=== PATIENT | female | born 1975 | race Caucasian/White ===

== ENCOUNTER 2019-11-06 11:10 | Emergency (ER) | payer BC ==
--- OUTSIDE RECORDS SUMMARY | 2019-11-06 11:35 | XMS REPORT ---
:1975 Author Organization eClinicalWorks Care Team Providers Name Role Phone Ines Angel Provider Role Unavailable Allergies No Known Allergies Problems Problem Type Condition Code Onset Dates Condition Status Problem Raynaud''s disease without gangrene I73.00 Active Problem Eyelid abnormality H02.9 Active Problem Hypertension, unspecified type I10 Active Problem Chronic kidney disease, unspecified N18.9 Active CKD stage Problem Insomnia, unspecified type G47.00 Active Problem Hyperlipidemia, unspecified E78.5 Active hyperlipidemia type Problem Kidney problem N28.9 Active Problem Elevated LFTs R94.5 Active Problem Dietary surveillance and counseling Z71.3 Active Problem Dietary counseling and surveillance Z71.3 Active Problem CPAP (continuous positive airway Z99.89 Active pressure) dependence Problem Hyperglycemia R73.9 Active Problem GODFREY (obstructive sleep apnea) G47.33 Active Problem Fatigue, unspecified type R53.83 Active Problem Hypotension, unspecified hypotension I95.9 Active type Problem Chronic pain syndrome G89.4 Active Problem Depression with anxiety F41.8 Active Problem Dizziness R42 Active Problem Cystic disease of liver Q44.6 Active Problem Essential hypertension I10 Active Problem Overweight (BMI 25.0-29.9) E66.3 Active Problem Status post fall Z91.81 Active Problem Vaginal lump N94.9 Active Problem Fibromyalgia M79.7 Active Problem Obesity (BMI 30.0-34.9) E66.9 Active Problem Scleroderma M34.9 Active Problem Polycystic kidney disease Q61.3 Active Problem Other chronic pain G89.29 Active Problem BMI 35.0-35.9,adult Z68.35 Active Problem Dorsalgia, unspecified M54.9 Active Problem Recurrent falls R29.6 Active Medications No Known Medications Results No Known Results Summary Purpose eClinicalWorks Submission
--- OUTSIDE RECORDS SUMMARY | 2019-11-06 11:35 | XMS REPORT ---
:1975 Author Organization [facility] Address [address] [place] [address] Dr. Enamorado [address] [place] [id number] Care Team Providers Name Role Phone DIANA BAUER Unavailable Unavailable Problems This patient has no known problems. Allergies, Adverse Reactions, Alerts This patient has no known allergies or adverse reactions. Medications This patient has no known medications. Results Test Description Test Time Test Comments Text Results Atomic Results Result Comments AFB CULTURE + SMEAR 2018-12-28 12:38:00 Test Item Value Reference Range Comments CULTURE (BEAKER) (test qlhz=3235) No acid-fast bacilli isolated in 42 days AFB SMEAR (BEAKER) (test copf=008) No acid fast bacilli seen AFB CULTURE + [id number] 12:38:00 Test Item Value Reference Range Comments CULTURE (BEAKER) (test No acid-fast bacilli isolated auaq=9249) in 42 days AFB SMEAR (BEAKER) (test No acid fast bacilli seen wrsi=971) FUNGUS CULTURE + [id number] 15:25:00 Test Item Value Reference Range Comments CULTURE (BEAKER) (test No fungus isolated in 28 days tvmg=7925) FUNGUS SMEAR (BEAKER) (test No fungi seen wcoa=1672) FUNGUS CULTURE + [id number] 15:25:00 Test Item Value Reference Range Comments CULTURE (BEAKER) (test No fungus isolated in 28 days soah=0497) FUNGUS SMEAR (BEAKER) (test No fungi seen ebsr=2223) SURGICALLY OBTAINED CULTURE + GRAM [id number] 08:22:00 Test Item Value Reference Range Comments CULTURE (BEAKER) (test COAGULASE NEGATIVE From Broth Only nzbf=6256) STAPHYLOCOCCUS Coagulase negative Staphylococcus Clindamycin (test code=10) Erythromycin (test code=4) Linezolid (test code=40) Nitrofurantoin (test code=23) Oxacillin (test code=14) Rifampin (test code=43) Tetracycline (test code=2) Trimethoprim + Sulfamethoxazole (test code=47) Vancomycin (test code=13) CULTURE (BEAKER) (test COAGULASE NEGATIVE From Broth Only cppa=1483) STAPHYLOCOCCUS Coagulase negative Staphylococcusof a second type Clindamycin (test code=10) Erythromycin (test code=4) Nitrofurantoin (test code=23) Oxacillin (test code=14) Rifampin (test code=43) Tetracycline (test code=2) Trimethoprim + Sulfamethoxazole (test code=47) Vancomycin (test code=13) GRAM STAIN RESULT <1+ White blood cells (BEAKER) (test seen mdhh=1887) GRAM STAIN RESULT <1+ gram variable (BEAKER) (test coccobacilli osbk=751187) TISSUE [id number] 20:10:00Surgical Pathology Report Case: [id number] Authorizing Provider: Diana Bauer MD Collected: 11/10/2018 0859 Ordering Location: [facility] Received: 11/10/2018 0953 PERIOPERATIVE SERVICES Pathologist: Raymond Gagnon MD Specimens: A) - Lung, Left Upper Lobe, LEFT UPPER LOBE WEDGE B) -Lung, Left Lower Lobe, LUNG LEFT LOWER LOBE WEDGE A. LUNG, LEFT UPPER LOBE, WEDGE RESECTION: - LUNG PARENCHYMA WITH MILD EMPHYSEMATOUS CHANGE ( SEE MICROSCOPIC DESCRIPTIONAND COMMENT)B. LUNG, LEFT LOWER LOBE, WEDGE RESECTION: - LUNG PARENCHYMA WITH MILD EMPHYSEMATOUS CHANGE (SEE MICROSCOPIC DESCRIPTION AND COMMENT) Signing Pathologist Direct Phone Line: The lung parenchyma shows mild emphysematous change and no other significant diagnostic abnormality. There is no evidence of interstitial lung disease (or) changes suggestive of autoimmune lung disease. Clinical and radiologic correlation is recommended to determine if the targeted areas are appropriately sampled.[id number] of breathA. Left upper lobe lung wedge; B. Left lower lobe lung wedgeSpecimen A: Received fresh labeled "lung, left upper lobe" is a 3.0 x 2.0 x 0.6 cm surgically stapled wedge of pulmonaryparenchyma. The pleural surface is purple-geurra to paulson-white and smooth. The specimen is serially sectioned to reveal pink-guerra spongy homogeneous pulmonary parenchyma throughout. No discrete masses are identified. The specimen is entirely submitted in cassettes A1-A2. Specimen B: In saline labeled "lung, left lower lobe" is a 2.2 x 1.5 x 0.2 cm surgically stapled wedge of pulmonary parenchyma. The pleural surface is purple-guerra and smooth. The specimen is serially sectioned to reveal pink-guerra spongy homogeneous pulmonary parenchyma throughout. No discrete masses are identified. The specimen is entirely submitted in cassette B1. DB/plThe alveolated lung parenchyma shows mild irregular enlargement of the air spaces, suggestive of mild emphysema. The airways are devoid of significant inflammation (or)peribronchiolar thickening. The vascular/ lymphatic channels do not show any significant abnormality. Pleura is unremarkable.There is no evidence of honeycombing (or) interstitial fibrosis. No cellularinfiltrates, features of acute lung injury, amyloid, vasculitis, granulomas, organizing pneumonia, neoplasm are evident.ANAEROBIC [id number] 18:07:00 Test Item Value Reference Range Comments CULTURE (BEAKER) (test kpmc=9931) No anaerobes isolated ANAEROBIC [id number] 18:07:00 Test Item Value Reference Range Comments CULTURE (BEAKER) (test ulbw=9776) No anaerobes isolated SURGICALLY OBTAINED CULTURE + GRAM [id number] 11:55:00 Test Item Value Reference Range Comments CULTURE (BEAKER) (test vpva=9302) No growth GRAM STAIN RESULT (BEAKER) (test No White blood cells seen ydqe=3220) GRAM STAIN RESULT (BEAKER) (test No organisms seen ykig=25979) RAD, CHEST, 1 VIEW, NON [id number] 11:44:00Reason for exam:->s/p chest tube removalShould this be performed at the bedside?->YesFINAL REPORT RAD, CHEST, 1 VIEW, NON DEPT INDICATION: s/p chest tube removal COMPARISON: Seven hours prior FINDINGS: Portable frontal view of the chest. IMPRESSION: Support Lines: Left thoracostomy tube has been removed. Lungs and pleura: There is a tiny left apical pneumothorax. Lungs are otherwise clear.Heart and mediastinum: Stable, unremarkable mediastinal contours.Additional findings: None. Signed: JR Garcia Robert MDReport Verified Date/Time: 11/11/2018 11:44:17 Reading Location: [facility] Radiology Reading Room Electronically signed by: TALIA GARCIA on 11:44 AMCBC W/PLT COUNT & AUTO [id number] 05:43:00 Test Item Value Reference Range Comments WHITE BLOOD CELL COUNT (BEAKER) (test yjpn=043) 5.5 K/ L 3.5-10.5 RED BLOOD CELL COUNT (BEAKER) (test pite=589) 3.44 M/ L 3.93-5.22 HEMOGLOBIN (BEAKER) (test kaft=039) 10.6 GM/DL 11.2-15.7 HEMATOCRIT (BEAKER) (test aybn=399) 33.7 % 34.1-44.9 MEAN CORPUSCULAR VOLUME (BEAKER) (test kqca=081) 98.0 fL 79.4-94.8 MEAN CORPUSCULAR HEMOGLOBIN (BEAKER) (test 30.8 pg 25.6-32.2 zqlj=476) MEAN CORPUSCULAR HEMOGLOBIN CONC (BEAKER) (test 31.5 GM/DL 32.2-35.5 rapn=425) RED CELL DISTRIBUTION WIDTH (BEAKER) (test 12.9 % 11.7-14.4 oedc=876) PLATELET COUNT (BEAKER) (test lqea=787) 186 K/CU MM 150-450 MEAN PLATELET VOLUME (BEAKER) (test skdu=540) 10.7 fL 9.4-12.3 NUCLEATED RED BLOOD CELLS (BEAKER) (test 0 /100 WBC 0-0 ekwg=998) NEUTROPHILS RELATIVE PERCENT (BEAKER) (test 88 % cgts=115) LYMPHOCYTES RELATIVE PERCENT (BEAKER) (test 6 % agjy=679) MONOCYTES RELATIVE PERCENT (BEAKER) (test 5 % ximj=495) EOSINOPHILS RELATIVE PERCENT (BEAKER) (test 0 % yxmh=835) BASOPHILS RELATIVE PERCENT (BEAKER) (test 0 % quie=415) NEUTROPHILS ABSOLUTE COUNT (BEAKER) (test 4.82 K/ L 1.56-6.13 rqzg=370) LYMPHOCYTES ABSOLUTE COUNT (BEAKER) (test 0.35 K/ L 1.18-3.74 mlli=105) MONOCYTES ABSOLUTE COUNT (BEAKER) (test 0.29 K/ L 0.24-0.36 vvkt=901) EOSINOPHILS ABSOLUTE COUNT (BEAKER) (test 0.00 K/ L 0.04-0.36 jdwr=205) BASOPHILS ABSOLUTE COUNT (BEAKER) (test 0.01 K/ L 0.01-0.08 dlyp=143) IMMATURE GRANULOCYTES-RELATIVE PERCENT (BEAKER) 0 % 0-1 (test rqel=9210) [id number] 05:26:00 Test Item Value Reference Range Comments MAGNESIUM (BEAKER) (test xtgl=309) 2.6 mg/dL 1.6-2.6 BASIC METABOLIC [id number] 05:26:00 Test Item Value Reference Range Comments SODIUM (BEAKER) (test 140 meq/L 136-145 ezkq=585) POTASSIUM (BEAKER) (test 4.8 meq/L 3.5-5.1 mjns=178) CHLORIDE (BEAKER) (test 109 meq/L 98-107 ymvb=751) CO2 (BEAKER) (test 22 meq/L 22-29 rnoi=241) BLOOD UREA NITROGEN 19 mg/dL 7-21 (BEAKER) (test orxb=182) CREATININE (BEAKER) (test 1.49 mg/dL 0.57-1.25 ygyo=148) GLUCOSE RANDOM (BEAKER) 105 mg/dL 70-105 (test goum=692) CALCIUM (BEAKER) (test 9.9 mg/dL 8.4-10.2 vmss=946) EGFR (BEAKER) (test 38 mL/min/1.73 sq m ESTIMATED GFR IS NOT pdsm=0263) ACCURATE CREATININE CLEARANCE IN PREDICTING GLOMERULAR FILTRATION RATE. ESTIMATED GFR IS NOT APPLICABLE FOR DIALYSIS PATIENTS. RAD, CHEST, 1 VIEW, NON [id number] 04:31:00Reason for exam:->S/P left lung biopsy; please evaluate for pneumothoraxIs the patient ?-> NoShould this be performed at the bedside?->YesFINAL REPORT Comparison exam: 11/10/2018 Interval development of mild right lower lobe atelectasis. Normal cardiomediastinal contours. Left chest tube, stable in position. Signed: Noah Reneeeport Verified Date/Time: 11/11 04:31:41 Reading Location: [address] Reading Room 04: [id number] 10:18:00 Test Item Value Reference Range Comments PHOSPHORUS (BEAKER) (test fovm=349) 3.4 mg/dL 2.3-4.7 [id number] 10:18:00 Test Item Value Reference Range Comments MAGNESIUM (BEAKER) (test rwqj=993) 1.9 mg/dL 1.6-2.6 BASIC METABOLIC [id number] 10:18:00 Test Item Value Reference Range Comments SODIUM (BEAKER) (test 143 meq/L 136-145 nitr=289) POTASSIUM (BEAKER) (test 4.3 meq/L 3.5-5.1 ilyk=553) CHLORIDE (BEAKER) (test 112 meq/L 98-107 cmnm=429) CO2 (BEAKER) (test 26 meq/L 22-29 aara=249) BLOOD UREA NITROGEN 20 mg/dL 7-21 (BEAKER) (test tfjh=565) CREATININE (BEAKER) (test 1.63 mg/dL 0.57-1.25 hjpx=095) GLUCOSE RANDOM (BEAKER) 121 mg/dL 70-105 (test fgne=486) CALCIUM (BEAKER) (test 9.0 mg/dL 8.4-10.2 wudw=731) EGFR (BEAKER) (test 34 mL/min/1.73 sq m ESTIMATED GFR IS NOT jreo=7042) ACCURATE CREATININE CLEARANCE IN PREDICTING GLOMERULAR FILTRATION RATE. ESTIMATED GFR IS NOT APPLICABLE FOR DIALYSIS PATIENTS. RAD, CHEST, 1 VIEW, NON [id number] 10:16:00Reason for exam:->S/P left lung biopsy; evaluate for pneumothoraxIs the patient ?->NoShould this be performed at the bedside?->YesFINAL REPORT RAD , CHEST, 1 VIEW, NON DEPT INDICATION: S/P left lung biopsy; evaluate for pneumothorax COMPARISON: November 07, 2018 FINDINGS: Portable frontal view of the chest. IMPRESSION: Support Lines: Left thoracostomy tube terminates near the apex. Lungs and pleura: Clear lungs. No visible pneumothorax on either side.Heart and mediastinum: Stable, unremarkable contours.Additional findings: None. Signed: JR Garcia Robert MDReport Verified Date/Time: 11/10/2018 10:16:26 Reading Location: [facility] Radiology Reading Room CBC ( HEMOGRAM ONLY)2018-11-10 09:58:00 Test Item Value Reference Range Comments WHITE BLOOD CELL COUNT (BEAKER) (test rqiv=152) 3.0 K/ L 3.5-10.5 RED BLOOD CELL COUNT (BEAKER) (test berw=523) 3.13 M/ L 3.93-5.22 HEMOGLOBIN (BEAKER) (test yfyf=267) 9.5 GM/DL 11.2-15.7 HEMATOCRIT (BEAKER) (test llvg=760) 30.0 % 34.1-44.9 MEAN CORPUSCULAR VOLUME (BEAKER) (test fnqj=447) 95.8 fL 79.4-94.8 MEAN CORPUSCULAR HEMOGLOBIN (BEAKER) (test 30.4 pg 25.6-32.2 zkqn=907) MEAN CORPUSCULAR HEMOGLOBIN CONC (BEAKER) (test 31.7 GM/DL 32.2-35.5 yeoh=564) RED CELL DISTRIBUTION WIDTH (BEAKER) (test 13.3 % 11.7-14.4 wkrn=130) PLATELET COUNT (BEAKER) (test hsgu=347) 159 K/CU MM 150-450 MEAN PLATELET VOLUME (BEAKER) (test hldv=175) 10.3 fL 9.4-12.3 NUCLEATED RED BLOOD CELLS (BEAKER) (test 0 /100 WBC 0-0 dwaa=226) RAD, CHEST, 2 [id number] 16:23:00Reason for exam:->Shortness of breathFINAL REPORT PA and Lateral views of the chest dated 11/07/2018 Clinical information: Shortness of breath Comment: Heart is normal in size. Pulmonary vasculature is unremarkable. Lungs are clear. No pulmonary infiltrate or pleural effusion is present. Impression: No active cardiopulmonary disease. Signed: Grisel Ferraro Verified Date/Time: 11/07 16:23:26 ReadingLocation: [facility] Radiology Reading Room PREGNANCY SCREEN, [id number] 16:20:00 Test Item Value Reference Range Comments TEST URINE (BEAKER) (test bcuf=289) Negative COMPREHENSIVE METABOLIC [id number] 16:11:00 Test Item Value Reference Range Comments TOTAL PROTEIN (BEAKER) 7.1 gm/dL 6.0-8.3 (test hmfl=732) ALBUMIN (BEAKER) (test 4.1 g/dL 3.5-5.0 razb=0193) ALKALINE PHOSPHATASE 79 U/L 40-150 (BEAKER) (test vsog=032) BILIRUBIN TOTAL (BEAKER) 0.3 mg/dL 0.2-1.2 (test epty=988) SODIUM (BEAKER) (test 145 meq/L 136-145 iggk=693) POTASSIUM (BEAKER) (test 4.6 meq/L 3.5-5.1 negk=633) CHLORIDE (BEAKER) (test 110 meq/L 98-107 uijj=715) CO2 (BEAKER) (test 27 meq/L 22-29 ogim=569) BLOOD UREA NITROGEN 21 mg/dL 7-21 (BEAKER) (test anlb=390) CREATININE (BEAKER) (test 1.63 mg/dL 0.57-1.25 rjkw=892) GLUCOSE RANDOM (BEAKER) 101 mg/dL 70-105 (test dyti=649) CALCIUM (BEAKER) (test 10.1 mg/dL 8.4-10.2 cgou=786) AST (SGOT) (BEAKER) (test 24 U/L 5-34 slfm=846) ALT (SGPT) (BEAKER) (test 17 U/L 6-55 nywf=370) EGFR (BEAKER) (test 34 mL/min/1.73 sq m ESTIMATED GFR IS NOT aagw=0350) ACCURATE CREATININE CLEARANCE IN PREDICTING GLOMERULAR FILTRATION RATE. ESTIMATED GFR IS NOT APPLICABLE FOR DIALYSIS PATIENTS. [id number] 16:06:00 Test Item Value Reference Range Comments PROTIME (BEAKER) (test ydht=660) 13.5 seconds 11.7-14.7 INR (BEAKER) (test pzyv=397) 1.0 <=5.9 PARTIAL THROMBOPLASTIN TIME (BEAKER) (test 30.3 seconds 22.5-36.0 iqdg=959) RECOMMENDED COUMADIN/WARFARIN INR THERAPY RANGESSTANDARD DOSE: 2.0 - 3.0 Includes: PROPHYLAXIS forvenous thrombosis, systemic embolization; TREATMENT for venous thrombosis and/or pulmonary embolus.HIGH RISK: Target INR is 2.5-3.5 for patients with mechanical heart valves.CBC W/PLT COUNT & AUTO [id number] 15:55:00 Test Item Value Reference Range Comments WHITE BLOOD CELL COUNT (BEAKER) (test qvxn=164) 3.5 K/ L 3.5-10.5 RED BLOOD CELL COUNT (BEAKER) (test xfhy=770) 3.40 M/ L 3.93-5.22 HEMOGLOBIN (BEAKER) (test gwid=767) 10.6 GM/DL 11.2-15.7 HEMATOCRIT (BEAKER) (test wwbb=160) 32.6 % 34.1-44.9 MEAN CORPUSCULAR VOLUME (BEAKER) (test sroy=302) 95.9 fL 79.4-94.8 MEAN CORPUSCULAR HEMOGLOBIN (BEAKER) (test 31.2 pg 25.6-32.2 nuke=976) MEAN CORPUSCULAR HEMOGLOBIN CONC (BEAKER) (test 32.5 GM/DL 32.2-35.5 gark=803) RED CELL DISTRIBUTION WIDTH (BEAKER) (test 13.2 % 11.7-14.4 nwir=830) PLATELET COUNT (BEAKER) (test ldtw=601) 189 K/CU MM 150-450 MEAN PLATELET VOLUME (BEAKER) (test skyt=106) 10.8 fL 9.4-12.3 NUCLEATED RED BLOOD CELLS (BEAKER) (test 0 /100 WBC 0-0 euku=242) NEUTROPHILS RELATIVE PERCENT (BEAKER) (test 50 % tzxo=673) LYMPHOCYTES RELATIVE PERCENT (BEAKER) (test 36 % hgsn=790) MONOCYTES RELATIVE PERCENT (BEAKER) (test 9 % nvgd=548) EOSINOPHILS RELATIVE PERCENT (BEAKER) (test 3 % adxm=191) BASOPHILS RELATIVE PERCENT (BEAKER) (test 1 % fthn=615) NEUTROPHILS ABSOLUTE COUNT (BEAKER) (test 1.77 K/ L 1.56-6.13 toyf=058) LYMPHOCYTES ABSOLUTE COUNT (BEAKER) (test 1.27 K/ L 1.18-3.74 ebfy=280) MONOCYTES ABSOLUTE COUNT (BEAKER) (test 0.33 K/ L 0.24-0.36 dzty=199) EOSINOPHILS ABSOLUTE COUNT (BEAKER) (test 0.12 K/ L 0.04-0.36 vknd=178) BASOPHILS ABSOLUTE COUNT (BEAKER) (test 0.03 K/ L 0.01-0.08 csog=035) IMMATURE GRANULOCYTES-RELATIVE PERCENT (BEAKER) 0 % 0-1 (test srcn=1953)
--- OUTSIDE RECORDS SUMMARY | 2019-11-06 11:36 | XMS REPORT ---
:1975 Author Organization eClinicalWorks Care Team Providers Name Role Phone Ines Angel Provider Role Unavailable Allergies, Adverse Reactions, Alerts Substance Reaction Event Type penicillin Info Not Available Drug Allergy NIFEdipine causes leg swelling Drug Allergy Problems Problem Type Condition Code Onset Dates Condition Status Assessment Hypotension, unspecified hypotension I95.9 Active type Assessment Essential hypertension I10 Active Problem Raynaud''s disease without gangrene I73.00 Active [...] Z91.81 Active Problem Vaginal lump N94.9 Active Assessment Overweight (BMI 25.0-29.9) E66.3 Active Problem Fibromyalgia M79.7 Active Assessment Need for influenza vaccination Z23 Active Problem Obesity (BMI 30.0-34.9) E66.9 Active Assessment Insomnia, unspecified type G47.00 Active Problem Scleroderma M34.9 Active Assessment Dietary surveillance and counseling Z71.3 Active Problem Polycystic kidney disease Q61.3 Active Problem Other chronic pain G89.29 Active Problem BMI 35.0-35.9,adult Z68.35 Active Problem Dorsalgia, unspecified M54.9 Active Problem Recurrent falls R29.6 Active Medications Medication Code Code Instructions Start End Status Dosage System Date Date Losartan [facility] 80892988879 50 MG Orally 1 Dec 18, Active as Potassium tablet once a 2018 directed day and take a 2nd dose in 12h prn BP > mw=854/90 Trazodone HCl [facility] 51562529226 50 MG Orally Active 2 tablets Once a day at bedtime as needed for sleep Xanax [facility] 60698101382 1 MG Orally Active 1 tablet Once a day Saxenda [facility] 73852614146 18 MG/3ML Dec 18May Active as Subcutaneous 2018, directed Start at 0.6 mg 2020 once daily x 1 week, then increase dose by 0.6 mg/day qwk to max of 3 mg/day Cardura [facility] 80177755870 4 MG Orally April 04, Active 1/2 tablet Twice daily 2017 PredniSONE [facility] 13286038957 5 MG Orally Active 1 tablet Once a day HydrALAZINE HCl [facility] 33125332226 50 MG Orally Active 1 tablet Three times a with food day [place] [facility] 84969443711 32G X 5 MM Active as directed Coreg [facility] 58484293646 25 MG Orally Active 1 tablet Twice a day as needed for BP > mv=439/90 Carvedilol ND 87373244118 25 mg Orally June 03, Active 1 tablet Twice a day 2017 with food Pravastatin [facility] 04514476983 10 MG Orally Active 1 tablet Sodium Once a day in evening Valsartan [facility] 24384458180 80 MG Orally Active 1 tablet Twice a day Latuda [facility] 92438556285 20 MG Orally Active 2 tablets Once a day with food Promethazine [facility] 09560702777 12.5 MG Orally Active 1 tablet HCl every 6 hrs as needed BELVIQ [facility] 83159181470 10 MG orally Active 1 tablet Twice a day Tolvaptan [facility] [address]-31 15 MG Orally Active 2 tablets Once a day Doxazosin [facility] 56028235099 4 MG Orally Sep 30, Active 1/2 tablet Mesylate twice a day 2017 Cymbalta [facility] 94637892782 60 MG Orally Active 1 capsule Once a day Crestor [facility] 07499269989 5 MG Orally Active 1 tablet Once a day Ultram [facility] 27524863036 50 MG Orally Active 1 tablet every 6 hrs as needed Results No Known Results Immunizations Vaccine Administration Date Flucelvax - single dose syringe Sep 27, 2019 Summary Purpose eClinicalWorks Submission
[2019-11-06] MEDS ORDERED: NA CHLORIDE 0.9% 1,000 ML ONE (11:52)
[2019-11-06 12:05] LABS: Basophils % 0.6 % (0-1.3); Hematocrit 35.5 % (36.0-45.0); Lymphocytes % 14.6 % (15.3-44.8); MPV 8.9 fL (7.6-11.3); RBC Red Blood Cell Count 3.94 M/uL (3.86-4.86)
[2019-11-06 12:30] LABS: ALT/SGPT 21 U/L (12-78); AST/SGOT 12 U/L (15-37); Albumin 3.5 g/dL (3.4-5.0); Alkaline Phosphatase 107 U/L (45-117); BUN Blood Urea Nitrogen 25 mg/dL (7-18); Bicarbonate 25 mmol/L (21-32); Bilirubin Total 0.5 mg/dL (0.2-1.0); Glucose Level 85 mg/dL (74-106); Potassium 3.6 mmol/L (3.5-5.1); Protein, Total 7.1 g/dL (6.4-8.2); Sodium Level 142 mmol/L (136-145); Troponin (Emerg Dept Use Only) < 0.02 ng/mL (0.0-0.045)
--- NOTE | 2019-11-06 13:00 | EKG ---
Test Date: 2019-11-06 Test Time: 11:50:11 Supervisor Rose Grading: RM MEASUREMENT RESULTS: Intervals: Rate: 58 NC: 152 QRSD: 86 QT: 454 QTc: 445 Warren: P: 50 NC: 152 QRS: -5 T: 10 INTERPRETIVE STATEMENTS: Sinus bradycardia Minimal voltage criteria for LVH, may be normal variant Cannot rule out Anterior infarct, age undetermined Abnormal ECG Compared to ECG 10/29/2015 22:38:08 Left ventricular hypertrophy now present Myocardial infarct finding now present Sinus rhythm no longer present Electronically Signed On 11-06-19 12:59:16 CYLINDER HANDLER by Rasmey Plummer
--- NOTE | 2019-11-06 13:33 | EDPHYS ---
Physician Documentation [facility] Name: Alethea Clayton Age: 44 yrs Sex: Female : 1975 Arrival Date: 11/06/2019 Time: 11:12 Bed 5 Private MD: ED Physician Freddy Neely HPI: 11/06 11:37 This 44 yrs old Female presents to ER via EMS with complaints of Syncope. marisela 11:37 The patient has experienced near-syncope, almost passed out, felt dizzy, felt faint. marisela Onset: The symptoms/episode began/occurred just prior to arrival. Duration: This was a single episode, that lasted 45 second(s). Context: the episode(s) was witnessed, by family, dentist office. Associated injury: The patient did not suffer any apparent associated injury. Associated signs and symptoms: The patient has no apparent associated signs or symptoms. Current symptoms: Currently, the patient is not experiencing any symptoms, the patient feels back to baseline, no decreased level of consciousness, no confusion, no dysphasia, no headache, no paralysis, no visual changes. The patient has not experienced similar symptoms in the past. Historical: - Allergies: 11:20 nefedipine; hb 11:20 PENICILLINS; hb - Home Meds: 11:20 carvedilol 25 mg Oral tab 1 tab 2 times per day [Active]; doxazosin 2 mg Oral tab 2 hb tabs once daily [Active]; folic acid 1 mg Oral tab 1 tab once daily [Active]; lamotrigine 100 mg Oral tab 1 tab once daily [Active]; methotrexate sodium 20 mg Oral tab once wkly [Active]; Orencia 125 mg/mL subcutaneous syrg 1 mL once wkly [Active]; trazodone 50 mg Oral tab 2 tabs nightly [Active]; Latuda 20 mg oral tab 1 tab once daily [Active]; Plaquenil 200 mg Oral tab 1 tab 2 times per day [Active]; losartan 50 mg oral tab 1 tab once daily [Active]; Saxenda 3 mg/0.5 mL (18 mg/3 mL) subcutaneous pnij 0.5 mL once daily [Active]; Pravachol 20 mg Oral tab [Active]; - PMHx: 11:20 Depression; Hyperlipidemia; poly cystic kindey; Hypertension; undifferentiated auto hb immunde disease-connective tissue; - PSHx: 11:20 ; Hysterectomy; hb - Immunization history:: Adult Immunizations up to date. - Social history:: Smoking status: Patient/guardian denies using tobacco. - Ebola Screening: : No symptoms or risks identified at this time. - Family history:: not pertinent. ROS: 11:37 Constitutional: Negative for fever, chills, and weight loss, Eyes: Negative for injury, marisela pain, redness, and discharge, ENT: Negative for injury, pain, and discharge, Neck: Negative for injury, pain, and swelling, Cardiovascular: Negative for chest pain, palpitations, and edema, Respiratory: Negative for shortness of breath, cough, wheezing, and pleuritic chest pain, Abdomen/GI: Negative for abdominal pain, nausea, vomiting, diarrhea, and constipation, Back: Negative for injury and pain, : Negative for injury, bleeding, discharge, and swelling, MS/Extremity: Negative for injury and deformity, Skin: Negative for injury, rash, and discoloration, Neuro: Negative for headache, weakness, numbness, tingling, and seizure, Psych: Negative for depression, anxiety, suicide ideation, homicidal ideation, and hallucinations, Allergy/Immunology: Negative for hives, rash, and allergies, Endocrine: Negative for neck swelling, polydipsia, polyuria, polyphagia, and marked weight changes, Hematologic/Lymphatic: Negative for swollen nodes, abnormal bleeding, and unusual bruising. 11:37 Neuro: Positive for near syncope. marisela Exam: 11:37 Constitutional: This is a well developed, well nourished patient who is awake, alert, marisela and in no acute distress. Head/Face: Normocephalic, atraumatic. Eyes: Pupils equal round and reactive to light, extra-ocular motions intact. Lids and lashes normal. Conjunctiva and sclera are non-icteric and not injected. Cornea within normal limits. Periorbital areas with no swelling, redness, or edema. ENT: Nares patent. No nasal discharge, no septal abnormalities noted. Tympanic membranes are normal and external auditory canals are clear. Oropharynx with no redness, swelling, or masses, exudates, or evidence of obstruction, uvula midline. Mucous membranes moist. Neck: Trachea midline, no thyromegaly or masses palpated, and no cervical lymphadenopathy. Supple, full range of motion without nuchal rigidity, or vertebral point tenderness. No Meningismus. Chest/axilla: Normal chest wall appearance and motion. Nontender with no deformity. No lesions are appreciated. Cardiovascular: Regular rate and rhythm with a normal S1 and S2. No gallops, murmurs, or rubs. Normal PMI, no JVD. No pulse deficits. Respiratory: Lungs have equal breath sounds bilaterally, clear to auscultation and percussion. No rales, rhonchi or wheezes noted. No increased work of breathing, no retractions or nasal flaring. Abdomen/GI: Soft, non-tender, with normal bowel sounds. No distension or tympany. No guarding or rebound. No evidence of tenderness throughout. Back: No spinal tenderness. No costovertebral tenderness. Full range of motion. Skin: Warm, dry with normal turgor. Normal color with no rashes, no lesions, and no evidence of cellulitis. MS/ Extremity: Pulses equal, no cyanosis. Neurovascular intact. Full, normal range of motion. Neuro: Awake and alert, GCS 15, oriented to person, place, time, and situation. Cranial nerves II-XII grossly intact. Motor strength 5/5 in all extremities. Sensory grossly intact. Cerebellar exam normal. Normal gait. Psych: Awake, alert, with orientation to person, place and time. Behavior, mood, and affect are within normal limits. 11:39 Musculoskeletal/extremity: DVT Exam: No signs of deep vein thrombosis. no pain, no marisela swelling, no tenderness, negative Homans' sign noted on exam, no appreciated bluish discoloration, no erythema, no increased warmth. Vital Signs: 11:24 BP 143 / 108; Pulse 61; Resp 16; Temp 97.7; Pulse Ox 100% on R/A; Pain 0/10; hb 12:30 BP 128 / 71; Pulse 66; Resp 15; Pulse Ox 99% on R/A; hb 13:30 BP 126 / 76; Pulse 64; Resp 16; Pulse Ox 99% on R/A; Pain 0/10; hb MDM: 11:15 Patient medically screened. [facility] 11:39 Data reviewed: vital signs, nurses notes, lab test result(s), EKG, radiologic studies. [facility] 11/06 11:37 Order name: CBC with Diff; Complete Time: 13:28 [facility] 11/06 11:37 Order name: Comprehensive Metabolic Panel; Complete Time: 13:28 [facility] 11/06 11:37 Order name: Urine Culture [facility] 11/06 11:39 Order name: Troponin (emerg Dept Use Only); Complete Time: 13:28 [facility] 11/06 11:53 Order name: Urine Dipstick--Ancillary (enter results) 11/06 11:37 Order name: EKG; Complete Time: 11:38 [facility] 11/06 11:37 Order name: EKG - Nurse/Tech; Complete Time: 11:49 [facility] 11/06 11:37 Order name: Urine Dipstick-Ancillary (obtain specimen); Complete Time: 11:48 [facility] Administered Medications: 11:50 Drug: NS 0.9% 1000 ml Route: IV; Rate: 1 bolus; Site: left antecubital; hb 12:45 Follow up: Response: No adverse reaction; IV Status: Completed infusion; IV Intake: jl7 1000ml Disposition: 11/06/19 13:32 Discharged to Home. Impression: Syncope and collapse - near, Unspecified kidney failure - renal insufficency. - Condition is Fair. - Discharge Instructions: Near-Syncope, Weakness, Near-Syncope, [id number], Acute Kidney Injury, Adult, Weakness, Jbon-je-Wwve, Chronic Kidney Disease, Adult, Kwlu-ii-Uidd, Chronic Kidney Disease, Adult, Preventing Chronic Kidney Disease, Vasovagal Syncope, Adult. - Medication Reconciliation Form, Thank You Letter, Antibiotic Education, Prescription Opioid Use form. - Follow up: Private Physician; When: 2 - 3 days; Reason: Recheck today's complaints, Continuance of care, Re-evaluation by your physician. - Problem is new. - Symptoms have improved. 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 [employer] EDRI Freddy Neely MD MD cha Baxter, Heather RN RN Alyssia Guillory RN jl7 Corrections: (The following items were deleted from the chart) 13:56 13:32 11/06/2019 13:32 Discharged to Home. Impression: Syncope and collapse - near; hb Unspecified kidney failure - renal insufficency. Condition is Fair. Discharge Instructions: Near-Syncope, Weakness, Near-Syncope, Eixg-[id number], Weakness, [id number], Vasovagal Syncope, Adult. Forms are Medication Reconciliation Form, Thank You Letter, Antibiotic Education, Prescription Opioid Use. Follow up: Private Physician; When: 2 - 3 days; Reason: Recheck today's complaints, Continuance of care, Re-evaluation by your physician. Problem is new. Symptoms have improved. marisela
--- NOTE | 2019-11-06 13:33 | ER ---
Nurse's Notes [facility] Name: Alethea Clayton Age: 44 yrs Sex: Female : 1975 Arrival Date: 11/06/2019 Time: 11:12 Bed 5 Private MD: Diagnosis: Syncope and collapse-near;Unspecified kidney failure-renal insufficency Presentation: 11/06 11:13 Presenting complaint: EMS states: Syncopal episode while standing for post wisdom tooth hb extraction XRays. Pt received 2 cartridges of Septocaine 1:100,100 during procedure, no sedation .BP 136/86, HR 80s, NSR on 12 lead, BGL 88, 20 G LAC. Transition of care: patient was received from another setting of care (ambulatory specialty care practice), Juan Noyola DDS. Onset of symptoms was November 06, 2019. Risk Assessment: Do you want to hurt yourself or someone else? Patient reports no desire to harm self or others. Initial Sepsis Screen: Does the patient meet any 2 criteria? No. Patient's initial sepsis screen is negative. Does the patient have a suspected source of infection? No. Patient's initial sepsis screen is negative. Care prior to arrival: None. 11:13 Method Of Arrival: EMS: [facility] hb 11:13 Acuity: SUGEY 3 hb Historical: - Allergies: 11:20 nefedipine; hb 11:20 PENICILLINS; hb - Home Meds: 11:20 carvedilol 25 mg Oral tab 1 tab 2 times per day [Active]; doxazosin 2 mg Oral tab 2 hb tabs once daily [Active]; folic acid 1 mg Oral tab 1 tab once daily [Active]; lamotrigine 100 mg Oral tab 1 tab once daily [Active]; methotrexate sodium 20 mg Oral tab once wkly [Active]; Orencia 125 mg/mL subcutaneous syrg 1 mL once wkly [Active]; trazodone 50 mg Oral tab 2 tabs nightly [Active]; Latuda 20 mg oral tab 1 tab once daily [Active]; Plaquenil 200 mg Oral tab 1 tab 2 times per day [Active]; losartan 50 mg oral tab 1 tab once daily [Active]; Saxenda 3 mg/0.5 mL (18 mg/3 mL) subcutaneous pnij 0.5 mL once daily [Active]; Pravachol 20 mg Oral tab [Active]; - PMHx: 11:20 Depression; Hyperlipidemia; poly cystic kindey; Hypertension; undifferentiated auto hb immunde disease-connective tissue; - PSHx: 11:20 ; Hysterectomy; hb - Immunization history:: Adult Immunizations up to date. - Social history:: Smoking status: Patient/guardian denies using tobacco. - Ebola Screening: : No symptoms or risks identified at this time. - Family history:: not pertinent. Screenin:26 Abuse screen: Denies threats or abuse. Denies injuries from another. Nutritional hb screening: No deficits noted. Tuberculosis screening: No symptoms or risk factors identified. Fall Risk None identified. Assessment: 11:26 General: Appears in no apparent distress. Behavior is calm, cooperative. Pain: Denies hb pain. Neuro: Level of Consciousness is awake, alert, obeys commands, Oriented to person, place, time, situation. Cardiovascular: Capillary refill < 3 seconds Patient's skin is warm and dry. Respiratory: Airway is patent Respiratory effort is even, unlabored, Respiratory pattern is regular, symmetrical, Breath sounds are clear bilaterally. GI: No signs and/or symptoms were reported involving the gastrointestinal system. : No signs and/or symptoms were reported regarding the genitourinary system. EENT: No signs and/or symptoms were reported regarding the EENT system. Derm: Skin is pink, warm \T\ dry. Musculoskeletal: No signs and/or symptoms reported regarding the musculoskeletal system. 12:30 Reassessment: Patient appears in no apparent distress at this time. Patient and/or hb family updated on plan of care and expected duration. Pain level reassessed. Patient is alert, oriented x 3, equal unlabored respirations, skin warm/dry/pink. 13:30 Reassessment: Patient appears in no apparent distress at this time. Patient and/or hb family updated on plan of care and expected duration. Pain level reassessed. Patient is alert, oriented x 3, equal unlabored respirations, skin warm/dry/pink. Vital Signs: 11:24 BP 143 / 108; Pulse 61; Resp 16; Temp 97.7; Pulse Ox 100% on R/A; Pain 0/10; hb 12:30 BP 128 / 71; Pulse 66; Resp 15; Pulse Ox 99% on R/A; hb 13:30 BP 126 / 76; Pulse 64; Resp 16; Pulse Ox 99% on R/A; Pain 0/10; hb ED Course: 11:12 Patient arrived in ED. hb 11:15 Freddy Neely MD is Attending Physician. marisela 11:17 Triage completed. hb 11:18 Alyssia Coffman, RN is Primary Nurse. jl7 11:24 Arm band placed on. hb 11:28 Patient has correct armband on for positive identification. Bed in low position. Call hb light in reach. Side rails up X 1. 12:16 EKG done, by computer systems technician. reviewed by Freddy Neely MD. at1 13:48 No provider procedures requiring assistance completed. IV discontinued, intact, hb bleeding controlled, No redness/swelling at site. Pressure dressing applied. Administered Medications: 11:50 Drug: NS 0.9% 1000 ml Route: IV; Rate: 1 bolus; Site: left antecubital; hb 12:45 Follow up: Response: No adverse reaction; IV Status: Completed infusion; IV Intake: jl7 1000ml Intake: 12:45 IV: 1000ml; Total: 1000ml. jl7 Outcome: 13:32 Discharge ordered by . marisela 13:48 Discharged to home ambulatory, with significant other. hb 13:48 Condition: stable 13:48 Discharge instructions given to patient, significant other, Instructed on discharge instructions, follow up and referral plans. medication usage, Demonstrated understanding of instructions, follow-up care, medications. 13:56 Patient left the ED. hb Signatures: Freddy Neely MD MD cha Gonzales, Amanda, medical transcriber EKG Tat1 Suki Emanuel, RN RN Alyssia Coffman, RN RN jl7 Corrections: (The following items were deleted from the chart) 11:25 11:13 Presenting complaint: EMS states: Syncopal episode while standing for post wisdom hb tooth extraction XRays. Pt received 2 cartridges of Septocaine 1:100,100 during procedure, no sedation. hb
[2019-11-06 13:57] LABS: Urine Blood NEGATIVE (NEG); Urine Glucose NEGATIVE (NEG); Urine Protein 2+ (NEG); Urine Specific Gravity 1.025 (1.005-1.030)
[2019-11-06 14:02] VITALS: TEMP 97.7
[2019-11-06 14:03] VITALS: O2SAT 99
[2019-11-06 14:05] VITALS: BP 126/76
== END 2019-11-06 13:56 | disposition home or self-care (01) ==
LOC: ER 11:10
DX: R42 Dizziness and giddiness (principal); N19 Unspecified kidney failure; N28.9 Disorder of kidney and ureter, unspecified; Z88.0 Allergy status to penicillin; Z88.8 Allergy status to other drugs, medicaments and biological substances; I10 Essential (primary) hypertension; E78.5 Hyperlipidemia, unspecified
CPT/HCPCS: 93005; 87088; 85025; 87086; 36415; 81003; 84484; 80053; 96360; 99283; J7030

== ENCOUNTER 2020-09-04 13:56 | Emergency (ER) | payer BC ==
--- NOTE | 2020-09-04 14:23 | RAD REPORT ---
EXAM DESCRIPTION: CT - Head Brain Wo Cont - 09/04/2020 2:17 pm CLINICAL HISTORY: HEADACHE Headache, drowsiness COMPARISON: No comparisons TECHNIQUE: All CT scans are performed using dose optimization technique as appropriate and may inclu de automated exposure control or mA/KV adjustment according to patient size. FINDINGS: No intracranial hemorrhage, hydrocephalus or extra-axial fluid collection.No areas of brai n edema or evidence of midline shift. The paranasal sinuses and mastoids are clear. The calvarium is intact. IMPRESSION: No acute intracranial abnormality.
[2020-09-04] MEDS ORDERED: NA CHLORIDE 0.9% 500 ML ONE (14:24)
--- NOTE | 2020-09-04 15:04 | RAD REPORT ---
EXAM DESCRIPTION: RAD - Chest Single View - 09/04/2020 2:53 pm CLINICAL HISTORY: HTN Chest pain. COMPARISON: Chest Pa And Lat (2 Views) dated 09/02/2016; CHEST SINGLE VIEW dated 10/29/2015; CHEST PA AND LAT 2 VIEW dated 01/17/2014 FINDINGS: Portable technique limits examination quality. The lungs are grossly clear. The heart is normal in size. No displaced fractures. IMPRESSION: No acute intrathoracic process suspected.
[2020-09-04 15:07] LABS: Protime INR 1.05
[2020-09-04 15:10] LABS: Absolute Lymphocytes (CBC) 1.1 K/uL (0.7-4.9); Basophils % 0.6 % (0-1.3); Hematocrit 35.5 % (36.0-45.0); Lymphocytes % 25.8 % (15.3-44.8); MPV 9.8 fL (7.6-11.3); RBC Red Blood Cell Count 4.06 M/uL (3.86-4.86)
[2020-09-04 15:20] LABS: ALT/SGPT 21 U/L (12-78); AST/SGOT 23 U/L (15-37); Albumin 3.6 g/dL (3.4-5.0); Alkaline Phosphatase 133 U/L (45-117); BUN Blood Urea Nitrogen 20 mg/dL (7-18); Bicarbonate 28 mmol/L (21-32); Bilirubin Direct 0.1 mg/dL (0-0.2); Bilirubin Total 0.4 mg/dL (0.2-1.0); Glucose Level 75 mg/dL (74-106); Magnesium 2.3 mg/dL (1.8-2.4); NT PRO-BNP 3030 pg/mL (<125); Potassium 3.7 mmol/L (3.5-5.1); Protein, Total 7.6 g/dL (6.4-8.2); Sodium Level 142 mmol/L (136-145); Troponin (Emerg Dept Use Only) < 0.02 ng/mL (0.0-0.045)
[2020-09-04] MEDS ORDERED: ASPIRIN 81 MG CHEWABLE TABLET ONE (15:38)
[2020-09-04] MEDS ORDERED: METOPROLOL TARTRATE 5 MG/5 ML INJ IV ONE (15:38)
--- NOTE | 2020-09-04 15:58 | ER ---
Nurse's Notes [facility] Name: Alethea Clayton Age: 45 yrs Sex: Female : 1975 Arrival Date: 09/04/2020 Time: 13:58 Bed 15 Private MD: Diagnosis: Hypertensive heart and chronic kidney disease;Unspecified kidney failure Presentation: 09/04 13:58 Chief complaint: EMS states: pt was at Dr. Bonilla office on [facility] office, having tw2 high blood pressure, blurred vision and a slight headache, he did double her blood pressure medicine last night and this morning but it did not help. Coronavirus screen: At this time, the client does not indicate any symptoms associated with coronavirus-19. Ebola Screen: Patient denies travel to an Ebola-affected area in the 21 days before illness onset. Initial Sepsis Screen: Does the patient meet any 2 criteria? No. Patient's initial sepsis screen is negative. Does the patient have a suspected source of infection? No. Patient's initial sepsis screen is negative. Risk Assessment: Do you want to hurt yourself or someone else? Patient reports no desire to harm self or others. Onset of symptoms was September 04, 2020. 13:58 Method Of Arrival: EMS: [facility] tw2 13:58 Acuity: SUGEY 3 tw2 13:58 Note provider at bedside at this time. tw2 Triage Assessment: 14:00 General: Appears in no apparent distress. slender, well groomed, Behavior is calm, tw2 cooperative, appropriate for age. Pain: Denies pain. PRESBYTERIAN CLERGY: 14:04 LMP N/A - tw2 Historical: - Allergies: 14:04 nefedipine; tw2 14:04 PENICILLINS; tw2 - Home Meds: 14:04 Arava 10 mg oral tab 1 tab once daily [Active]; Plaquenil 200 mg Oral tab 1 tab 2 times tw2 per day [Active]; Saxenda 3 mg/0.5 mL (18 mg/3 mL) subcutaneous pnij 0.5 mL once daily [Active]; 14:39 carvedilol 3.125 mg oral tab 1 tab 2 times per day [Active]; folic acid 2 mg cap Oral tw2 tab 1 tab once daily [Active]; lamotrigine 100 mg Oral tab 1 tab 2 times per day [Active]; Orencia infusion subcutaneous once wkly [Active]; Pravachol 10 mg tab Oral tab 1 tab once daily [Active]; - PMHx: 14:04 Depression; Hyperlipidemia; Hypertension; poly cystic kindey; undifferentiated auto tw2 immunde disease-connective tissue; Rheumatoid Arthritis; - PSHx: 14:04 ; Hysterectomy; tw2 - Immunization history:: Adult Immunizations. - Social history:: Smoking status: . Screenin:04 Abuse screen: Denies threats or abuse. Nutritional screening: No deficits noted. tw2 Tuberculosis screening: No symptoms or risk factors identified. Fall Risk None identified. Assessment: 14:00 General: Appears in no apparent distress. slender, well groomed, Behavior is calm, tw2 cooperative, appropriate for age. Pain: Denies pain. Neuro: Level of Consciousness is awake, alert, obeys commands, Oriented to person, place, time, situation. Neuro: Reports "that doctor just wouldn't do anything and said it could be this or this and said he was calling the ambulance for me". Cardiovascular: Heart tones S1 S2 Patient's skin is warm and dry. Respiratory: Airway is patent Respiratory effort is even, unlabored, Respiratory pattern is regular, symmetrical, Breath sounds are clear bilaterally. GI: No signs and/or symptoms were reported involving the gastrointestinal system. Abdomen is flat, Bowel sounds present X 4 quads. : No signs and/or symptoms were reported regarding the genitourinary system. EENT: No signs and/or symptoms were reported regarding the EENT system. Derm: No signs and/or symptoms reported regarding the dermatologic system. Skin is intact, is healthy with good turgor, Skin is dry, Skin temperature is warm. Musculoskeletal: Range of motion: intact in all extremities. 14:39 Reassessment: Patient appears in no apparent distress at this time. No changes from tw2 previously documented assessment. Patient and/or family updated on plan of care and expected duration. Pain level reassessed. Patient is alert, oriented x 3, equal unlabored respirations, skin warm/dry/pink. 15:50 Reassessment: provider at bedside at this time. tw2 16:08 Reassessment: Patient appears in no apparent distress at this time. No changes from tw2 previously documented assessment. Patient and/or family updated on plan of care and expected duration. Pain level reassessed. Patient is alert, oriented x 3, equal unlabored respirations, skin warm/dry/pink. Vital Signs: 13:58 BP 190 / 120; Pulse 84; Resp 17; Temp 98.5(O); Pulse Ox 99% on R/A; Weight 72.57 kg tw2 (R); Height 5 ft. 6 in. (167.64 cm); Pain 0/10; 14:39 BP 170 / 106; Pulse 77; Resp 17; Pulse Ox 100% on R/A; tw2 15:14 BP 182 / 118; Pulse 73; Resp 17; Pulse Ox 100% on R/A; tw2 15:50 BP 177 / 99; Pulse 78; Resp 17; Pulse Ox 98% on R/A; tw2 16:08 BP 154 / 98; Pulse 69; Resp 17; Pulse Ox 100% on R/A; tw2 13:58 Body Mass Index 25.82 (72.57 kg, 167.64 cm) tw2 ED Course: 13:58 Patient arrived in ED. tw2 13:58 Freddy Verde PA is PHCP. cp 13:58 Krishna Bell MD is Attending Physician. cp 13:58 Placed in gown. Bed in low position. court recording monitor on. Pulse ox on. NIBP on. Warm tw2 blanket given. 14:00 Triage completed. tw2 14:00 Arm band placed on. tw2 14:10 Carlee Lange, RN is Primary Nurse. tw2 14:17 CT Head Brain wo Cont In Process Unspecified. EDMS 14:30 Initial lab(s) drawn, by ED staff, sent to lab. Urine collected: clean catch specimen, jl7 clear, EKG done, by ED staff, reviewed by Krishna Bell MD. Inserted saline lock: 22 gauge in left antecubital area, using aseptic technique. Blood collected. 14:53 XRAY Chest (1 view) In Process Unspecified. EDMS 16:08 No provider procedures requiring assistance completed. IV discontinued, intact, tw2 bleeding controlled, No redness/swelling at site. Pressure dressing applied. Administered Medications: 14:57 Drug: NS 0.9% 500 ml Route: IV; Rate: bolus; Site: left antecubital; jl7 16:05 Follow up: Response: No adverse reaction; IV Status: Order to discontinue infusion; IV tw2 Intake: 300ml 15:12 Drug: Losartan 25 mg {Note: administered once delivered from pharmacy.} Route: PO; tw2 15:56 Follow up: Response: No adverse reaction tw2 15:21 Not Given (Duplicate Order): Lopressor 5 mg IVP every 5 minutes; Hold for SBP < 100 or tw2 HR < 60. x3 15:30 Drug: Aspirin 81 mg Route: PO; tw2 15:51 Follow up: Response: No adverse reaction tw2 15:30 Drug: Lopressor 5 mg Route: IVP; Site: left antecubital; tw2 15:51 Follow up: Response: No adverse reaction; Blood pressure is lowered tw2 Intake: 16:05 IV: 300ml; Total: 300ml. tw2 Outcome: 15:57 Discharge ordered by MD. cp 16:08 Discharged to home ambulatory, with significant other. tw2 16:08 Condition: stable 16:08 Discharge instructions given to patient, significant other, Instructed on discharge instructions, follow up and referral plans. medication usage, Demonstrated understanding of instructions, follow-up care, medications, Prescriptions given X 1. 16:09 Patient left the ED. tw 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 [employer] EDMS Freddy Verde PA PA cp Wise, Tara, RN RN tw Alyssia Coffman RN RN jl7 Corrections: (The following items were deleted from the chart) 14:39 14:04 Home Meds: trazodone 50 mg Oral tab 2 tabs nightly; 14:39 14:04 Home Meds: Ambien 10 mg Oral tab 1 tab once daily; 14:39 14:04 Home Meds: aspirin 81 mg Oral chew 1 tab once daily; 14:39 14:04 Home Meds: carvedilol 25 mg Oral tab 1 tab 2 times per day; 14:39 14:04 Home Meds: doxazosin 2 mg Oral tab 2 tabs once daily; 14:39 14:04 Home Meds: Enbrel; 14:39 14:04 Home Meds: folic acid 1 mg Oral tab 1 tab once daily; 14:39 14:04 Home Meds: lamotrigine 100 mg Oral tab 1 tab once daily; 14:04 Home Meds: Latuda 20 mg Oral tab 1 tab once daily; 14:04 Home Meds: losartan 50 mg Oral tab 1 tab once daily; 14:04 Home Meds: Orencia 125 mg/mL subcutaneous syrg 1 mL once wkly; 14: Home Meds: Pravachol 20 mg Oral tab;
--- NOTE | 2020-09-04 15:58 | EDPHYS ---
Physician Documentation [facility] Name: Alethea Clayton Age: 45 yrs Sex: Female : 1975 Arrival Date: 09/04/2020 Time: 13:58 Bed 15 Private MD: ED Physician Krishna Bell HPI: 09/04 14:10 This 45 yrs old Female presents to ER via EMS with complaints of High Blood cp Pressure. 14:10 The patient has elevated blood pressure and discovered this at a physician's office, cp and sent to the emergency department for evaluation. 14:10 Onset: The symptoms/episode began/occurred today. cp 14:10 Severity of symptoms: in the emergency department the blood pressure is unchanged, cp despite home interventions. 14:10 Associated signs and symptoms: Pertinent positives: headache, blurry vision, Pertinent cp negatives: chest pain, dizziness, dyspnea, vomiting, weakness. Patient referred to ED for evaluation by physician office for elevated blood pressure. Patient reports history of HTN, and in the past was taking 3 blood pressure medications. Patient reports she is now taking only one and attempted to lower blood pressure today by doubling medication. 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 LMP N/A - tw2 Historical: - Allergies: 14:04 nefedipine; tw2 14:04 PENICILLINS; tw2 - Home Meds: 14:04 Arava 10 mg oral tab 1 tab once daily [Active]; Plaquenil 200 mg Oral tab 1 tab 2 times tw2 per day [Active]; Saxenda 3 mg/0.5 mL (18 mg/3 mL) subcutaneous pnij 0.5 mL once daily [Active]; 14:39 carvedilol 3.125 mg oral tab 1 tab 2 times per day [Active]; folic acid 2 mg cap Oral tw2 tab 1 tab once daily [Active]; lamotrigine 100 mg Oral tab 1 tab 2 times per day [Active]; Orencia infusion subcutaneous once wkly [Active]; Pravachol 10 mg tab Oral tab 1 tab once daily [Active]; - PMHx: 14:04 Depression; Hyperlipidemia; Hypertension; poly cystic kindey; undifferentiated auto tw2 immunde disease-connective tissue; Rheumatoid Arthritis; - PSHx: 14:04 ; Hysterectomy; tw2 - Immunization history:: Adult Immunizations. - Social history:: Smoking status: . ROS: 14:15 Constitutional: Negative for body aches, chills, fever, poor PO intake. cp 14:15 Eyes: Positive for blurry vision, Negative for pain, redness, vision loss. cp 14:15 ENT: Negative for ear pain, sore throat, difficulty swallowing, difficulty handling secretions. 14:15 Cardiovascular: Negative for chest pain, edema, palpitations. 14:15 Respiratory: Negative for cough, shortness of breath, wheezing. 14:15 Abdomen/GI: Negative for abdominal pain, nausea, vomiting, and diarrhea. 14:15 Skin: Negative for rash. 14:15 Neuro: Positive for headache, Negative for altered mental status, dizziness, numbness, syncope, tingling, weakness. 14:15 All other systems are negative. Exam: 14:35 ECG was reviewed by the Attending Physician. cp 14:45 Head/Face: Normocephalic, atraumatic. cp 14:45 Constitutional: The patient appears in no acute distress, alert, awake, non-diaphoretic, non-toxic, well developed, well nourished. 14:45 Eyes: Periorbital structures: appear normal, Pupils: equal, round, and reactive to light and accomodation, Extraocular movements: intact throughout, Conjunctiva: normal, no exudate, no injection, Sclera: no appreciated abnormality, Lids and lashes: appear normal, bilaterally. 14:45 ENT: External ear(s): are unremarkable, Nose: is normal, Posterior pharynx: Airway: no evidence of obstruction, patent. 14:45 Neck: ROM/movement: is normal, is supple, without pain, no range of motions limitations. 14:45 Chest/axilla: Inspection: normal, Palpation: is normal, no crepitus, no tenderness. 14:45 Cardiovascular: Rate: normal, Rhythm: regular, Edema: is not appreciated, JVD: is not appreciated. 14:45 Respiratory: the patient does not display signs of respiratory distress, Respirations: normal, no use of accessory muscles, no retractions, labored breathing, is not present, Breath sounds: are clear throughout, no decreased breath sounds. 14:45 Abdomen/GI: Inspection: abdomen appears normal, Palpation: abdomen is soft and non-tender, in all quadrants. 14:45 Neuro: Orientation: to person, place \T\ time. Mentation: is normal, Cerebellar function: is grossly normal, Motor: moves all fours, strength is normal, Sensation: is normal. Vital Signs: 13:58 BP 190 / 120; Pulse 84; Resp 17; Temp 98.5(O); Pulse Ox 99% on R/A; Weight 72.57 kg tw2 (R); Height 5 ft. 6 in. (167.64 cm); Pain 0/10; 14:39 BP 170 / 106; Pulse 77; Resp 17; Pulse Ox 100% on R/A; tw2 15:14 BP 182 / 118; Pulse 73; Resp 17; Pulse Ox 100% on R/A; tw2 15:50 BP 177 / 99; Pulse 78; Resp 17; Pulse Ox 98% on R/A; tw2 16:08 BP 154 / 98; Pulse 69; Resp 17; Pulse Ox 100% on R/A; tw2 13:58 Body Mass Index 25.82 (72.57 kg, 167.64 cm) tw2 MDM: 14:02 Patient medically screened. cp 14:30 Differential diagnosis: hypertensive crisis, Malignant HTN, CVA, intracerebral cp hemorrhage, kidney disease. 15:55 Data reviewed: vital signs, nurses notes, lab test result(s), EKG, radiologic studies, cp CT scan. 15:55 Test interpretation: by ED physician or midlevel provider: ECG, plain radiologic cp studies. Counseling: I had a detailed discussion with the patient and/or guardian regarding: the historical points, exam findings, and any diagnostic results supporting the discharge/admit diagnosis, the presence of at least one elevated blood pressure reading (>120/80) during this emergency department visit, lab results, radiology results, the need for outpatient follow up, for definitive care, a family practitioner, to return to the emergency department if symptoms worsen or persist or if there are any questions or concerns that arise at home. Response to treatment: the patient's symptoms have markedly improved after treatment. ED course: VSS. Blood pressure and symptoms improved. Will discharge to home for continued monitoring. 09/04 14:05 Order name: NT PRO-BNP; Complete Time: 15:42 cp 09/04 15:42 Interpretation: Abnormal: NT PRO-BNP 3030. cp 09/04 14:05 Order name: Basic Metabolic Panel; Complete Time: 15:42 cp 09/04 15:43 Interpretation: Normal except: CL 109; BUN 20; CRE 2.06; GFR 26. cp 09/04 14:05 Order name: CBC with Diff; Complete Time: 15:17 cp 09/04 15:17 Interpretation: Normal except: HGB 11.8; HCT 35.5. cp 09/04 14:05 Order name: LFT's; Complete Time: 15:42 cp 09/04 15:58 Interpretation: Normal except: ALK 133; GLOB 4.0; A/G 0.9. cp 09/04 14:05 Order name: Magnesium; Complete Time: 15:42 cp 09/04 14:05 Order name: PT-INR; Complete Time: 15:17 cp 09/04 14:05 Order name: CT Head Brain wo Cont; Complete Time: 14:45 cp 09/04 14:45 Interpretation: Report reviewed. cp 09/04 14:05 Order name: Troponin (emerg Dept Use Only); Complete Time: 15:42 cp 09/04 14:05 Order name: XRAY Chest (1 view); Complete Time: 15:17 cp 09/04 14:22 Order name: Urine Dipstick--Ancillary (enter results) bd 09/04 14:05 Order name: Urine Test (obtain specimen); Complete Time: 14:58 cp 09/04 14:05 Order name: Urine Dipstick-Ancillary (obtain specimen); Complete Time: 14:58 cp 09/04 14:05 Order name: EKG; Complete Time: 14:06 cp 09/04 14:05 Order name: Cardiac monitoring; Complete Time: 14:13 cp 09/04 14:05 Order name: EKG - Nurse/Tech; Complete Time: 14:58 cp 09/04 14:05 Order name: IV Saline Lock; Complete Time: 14:58 cp 09/04 14:05 Order name: Labs collected and sent; Complete Time: 14:58 cp 09/04 14:05 Order name: O2 Per Protocol; Complete Time: 14:13 cp 09/04 14:05 Order name: O2 Sat Monitoring; Complete Time: 14:13 cp EC:35 Rate is 65 beats/min. Rhythm is regular. AK interval is normal. QRS interval is normal. cp QT interval is normal. T waves are Inverted in lead III. Interpreted by me. Reviewed by me. Administered Medications: 14:57 Drug: NS 0.9% 500 ml Route: IV; Rate: bolus; Site: left antecubital; jl7 16:05 Follow up: Response: No adverse reaction; IV Status: Order to discontinue infusion; IV tw2 Intake: 300ml 15:12 Drug: Losartan 25 mg {Note: administered once delivered from pharmacy.} Route: PO; tw2 15:56 Follow up: Response: No adverse reaction tw2 15:21 Not Given (Duplicate Order): Lopressor 5 mg IVP every 5 minutes; Hold for SBP < 100 or tw2 HR < 60. x3 15:30 Drug: Aspirin 81 mg Route: PO; tw2 15:51 Follow up: Response: No adverse reaction tw2 15:30 Drug: Lopressor 5 mg Route: IVP; Site: left antecubital; tw2 15:51 Follow up: Response: No adverse reaction; Blood pressure is lowered tw2 Disposition: 16:15 Chart complete. cp 16:17 Co-signature as Attending Physician, Krishna Bell MD. rn Disposition: 09/04/20 15:57 Discharged to Home. Impression: Hypertensive heart and chronic kidney disease, Unspecified kidney failure. - Condition is Stable. - Discharge Instructions: Hypertension, Chronic Kidney Disease, Adult. - Prescriptions for losartan 50 mg Oral tablet - take 1 tablet by ORAL route once daily; 30 tablet. - SBAR form, Medication Reconciliation Form, Thank You Letter, Antibiotic Education, Prescription Opioid Use form. - Follow up: Private Physician; When: 1 - 2 days; Reason: Recheck today's complaints. - Problem is new. - Symptoms have improved. 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 [employer] EDMS Krishna Bell MD MD rn Page, Corey, PA PA cp Carlee Lange, RN RN tw2 Alyssia Coffman RN RN jl7 Corrections: (The following items were deleted from the chart) 14:39 14:04 Home Meds: trazodone 50 mg Oral tab 2 tabs nightly; tw 14:39 14:04 Home Meds: Ambien 10 mg Oral tab 1 tab once daily; tw 14:39 14:04 Home Meds: aspirin 81 mg Oral chew 1 tab once daily; tw 14:39 14:04 Home Meds: carvedilol 25 mg Oral tab 1 tab 2 times per day; tw2 2 14:39 14:04 Home Meds: doxazosin 2 mg Oral tab 2 tabs once daily; tw2 2 14:39 14:04 Home Meds: Enbrel; tw2 2 14:39 14:04 Home Meds: folic acid 1 mg Oral tab 1 tab once daily; tw2 2 14:39 14:04 Home Meds: lamotrigine 100 mg Oral tab 1 tab once daily; tw2 2 14:39 14:04 Home Meds: Latuda 20 mg Oral tab 1 tab once daily; tw2 2 14:39 14:04 Home Meds: losartan 50 mg Oral tab 1 tab once daily; tw2 2 14:39 14:04 Home Meds: Orencia 125 mg/mL subcutaneous syrg 1 mL once wkly; tw2 2 14:39 14:04 Home Meds: Pravachol 20 mg Oral tab; tw2 2 16:09 15:57 09/04/2020 15:57 Discharged to Home. Impression: Hypertensive heart and chronic tw2 kidney disease; Unspecified kidney failure. Condition is Stable. Forms are SBAR form, Medication Reconciliation Form, Thank You Letter, Antibiotic Education, Prescription Opioid Use. Follow up: Private Physician; When: 1 - 2 days; Reason: Recheck today's complaints. Problem is new. Symptoms have improved. cp
[2020-09-04] MEDS ORDERED: LOSARTAN POTASSIUM 50 MG TABLET PO ONE (16:00)
[2020-09-04 16:24] VITALS: TEMP 98.5
[2020-09-04 16:33] VITALS: BP 154/98; O2SAT 100
[2020-09-04 18:40] LABS: Urine Blood NEGATIVE (NEG); Urine Glucose NEGATIVE (NEG); Urine Protein 2+ (NEG); Urine Specific Gravity >1.030 (1.005-1.030)
--- OUTSIDE RECORDS SUMMARY | 2020-09-05 21:18 | XMS REPORT | Clinical Summary ---
:1975 Author Organization [facility] Address [address] [place] [address] Care Team Providers Name Role Phone Catia Angel MD Primary Care Provider Allergies Active Allergy Reactions Severity Noted Date Comments Amitriptyline Palpitations High 11/09/2016 Amlodipine Swelling 01/05/2017 Nifedipine Other (See Comments), 01/29/2015 Swelling Penicillins Other (See Comments), High 03/24/2007 Toddle r; breathing Shortness Of Breath issues Zolpidem Other (See Comments) 02/25/2018 Medications Medication Sig Dispensed Refills Start End Date Status Date abatacept (ORENCIA Inject 1 Dose 0 Active SUBQ) subcutaneously once a week. lamoTRIgine (LAMICTAL) Take 200 mg by 0 Active 200 MG tablet mouth daily. carvedilol (COREG) 25 Take 25 mg by mouth 0 Active MG tablet 2 (two) times daily with breakfast and dinner. traZODone (DESYREL) 50 Take 50 mg by mouth 0 Active MG tablet nightly. FOLIC ACID ORAL Take 2 mg by mouth 0 Active daily. methotrexate 2.5 MG Take by mouth once 0 Active tablet a week. 8 Tablets hydroxychloroquine Take by mouth 2 0 Active (PLAQUENIL) 200 mg (two) times daily. tablet losartan (COZAAR) 50 MG Take 50 mg by mouth 0 Active tablet daily. pravastatin (PRAVACHOL) Take 10 mg by mouth 0 Active 10 MG tablet daily. doxazosin (CARDURA) 8 Take 4 mg by mouth 0 Active MG tablet 2 (two) times daily. naltrexone-bupropion Take by mouth 2 0 Active (CONTRAVE) 8-90 mg TbER (two) times daily. vitamin Take 1 tablet by 0 Active w/pmrnnui-gjts-hrlfif mouth daily. ( PLUS) 27 mg iron- 1 mg Tab cyanocobalamin, vitamin Take 1 tablet by 0 Active B-12, (VITAMIN B-12 mouth daily. ORAL) BIOTIN ORAL Take 1 tablet by 0 A ctive mouth daily. gabapentin (NEURONTIN) Take 1 capsule (300 90 capsule 2 Active 300 MG capsule mg total) by mouth 8 3 (three) times daily. traMADol (ULTRAM) 50 mg Take 1-2 tablets 40 tablet 0 Active tablet (50-100 mg total) 8 by mouth every 6 (six) hours as needed. Max Daily Amount: 400 mg Active Problems Problem Noted Date Chronic bilateral pleural effusions 11/10/2018 Shortness of breath 11/10/2018 Social History Tobacco Use Types Packs/Day Years Used Date Never Smoker Smokeless Tobacco: Never Used Alcohol Use Drinks/Week oz/Week Comments No Alcohol Habits Answer Date Recorded How often do you have a drink containing alcohol? Never 11/07/2018 How many drinks containing alcohol do you have on a typical Not asked day when you are drinking? How often do you have six or more drinks on one occasion? No t asked Sex Assigned at Date Recorded Not on file Job Start Date Occupation Industry Not on file Not on file Not on file Travel History Travel Start Travel End No recent travel history available. Last Filed Vital Signs Not on file Plan of Treatment Health Maintenance Due Date Last Done Comments CERVICAL CANCER SCREENING PAP ONLY (Age 21-65) 1995 LIPID PANEL 2019 INFLUENZA VACCINE (#1) 2020 Results Not on fileafter 09/04/2019 Insurance Payer Benefit Plan / Group Subscriber ID Type Phone A ddress [employer] - [employer] CARE [employer] HMO POS QPOS xxxxxxxxxx HMO/POS Advance Directives For more information, please contact:[place] [id number] [place], [place] [phone] Code Status Date Activated Date Inactivated Comments Full Code 11/10/2018 5:58 AM This code status was determined by: Patient
--- OUTSIDE RECORDS SUMMARY | 2020-09-05 21:18 | XMS REPORT | Clinical Summary ---
:1975 Author Organization [facility] Address [address] [place] [id number] Care Team Providers Name Role Phone Ines Anegl MD Primary Care Provider Allergies Active Allergy Reactions Severity Noted Date Comments Amitriptyline 11/09/2016 Nifedipine 11/09/2016 Penicillins 11/09/2016 Medications Medication Sig Dispensed Refills Start Date End Date Status carvedilol (COREG) 25 MG Take 25 mg by 0 09/13/2016 Active tablet mouth 2 (two) times a day. pravastatin (PRAVACHOL) 10 Take 10 mg by 0 6 Active MG tablet mouth nightly. esomeprazole (NexIUM) 40 MG 0 10/20/2016 Active capsule predniSONE (DELTASONE) 5 mg 0 10/17/2016 Active tablet amLODIPine (NORVASC) 10 mg 0 10/27/2016 Active tablet SAVELLA 12.5 mg (5)-25 0 10/29/2016 Active mg(8)-50 mg(42) tablets,dose pack ALPRAZolam (XANAX) 1 MG 0 10/30/2016 Active tablet traMADol (ULTRAM) 50 mg 0 09/25/2016 Active tablet promethazine (PHENERGAN) 0 10/27/2016 Active 12.5 MG tablet hydroxychloroquine 0 11/04/2016 Active (PLAQUENIL) 200 mg tablet doxazosin (CARDURA) 4 MG 0 10/20/2016 Active tablet Active Problems Problem Noted Date Mydriasis 11/09/2016 High risk medication use 11/09/2016 Surgical History Surgery Date Site/Laterality Comments SECTION HYSTERECTOMY Medical History Medical History Date Comments Hypertension Renal insufficiency Joint pain Depression Anxiety Family History Medical History Relation Name Comments No Known Problems Brother Diabetes Father Hyperlipidemia Father Hypertension Father Cancer Maternal Grandfather Hyperlipidemia Mother Diabetes Paternal Grandmother Glaucoma Paternal Grandmother Hypertension Paternal Grandmother No Known Problems Sister Relation Name Status Comments Brother Father Maternal Grandfather Mother Paternal Grandmother Sister Social History Tobacco Use Types Packs/Day Years Used Date Never Smoker Alcohol Use Drinks/Week oz/Week Comments No Sex Assigned at Date Recorded Not on file Last Filed Vital Signs Not on file Plan of Treatment Health Maintenance Due Date Last Done Comments CERVICAL CANCER SCREENING 1995 INFLUENZA VACCINE 06/29/2020 Results Not on fileafter 09/04/2019 Advance Directives For more information, please contact: [phone] Type Date Recorded 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
--- OUTSIDE RECORDS SUMMARY | 2020-09-05 21:19 | XMS REPORT ---
:1975 Author Organization [facility] Address [address] [facility] [place] [address] Care Team Providers Name Role Phone Millender Unavailable [phone] PROBLEMS Type Condition ICD9-CM [id number] Onset Condition SNOMED Code Notes Code Code Dates Status Problem Hyperlipidemia, E78.5 Active 73985516 unspecified hyperlipidemia type Problem Chronic pain G89.4 Active 236221171 syndrome Problem Depression with F41.8 Active 185662674 anxiety Problem Fibromyalgia M79.7 Active 000796635 Problem Scleroderma M34.9 Active 914798942 Problem Dietary Z71.3 Active 377977448 counseling and surveillance Problem Polycystic Q61.3 Active 59953630 kidney disease Problem Overweight (BMI E66.3 Active 830497241 25.0-29.9) Problem Hypertension, I10 Active 74999204 With unspecified type reporte d episodes of low BPs. Problem Essential I10 Active 45012893 hypertension Problem Eyelid H02.9 Active 09978913 abnormality Problem Insomnia, G47.00 Active 351373949 unspecified type Problem Chronic kidney N18.9 Active 429650878 disease, unspecified CKD stage Problem Recurrent falls R29.6 Active 837103727 Problem Obesity (BMI E66.9 Active 467729371378869 30.0-34.9) Problem Elevated LFTs R94.5 Active 798676410 Problem BMI Z68.35 Active 452772274413449 35.0-35.9,adult Problem CPAP (continuous Z99.89 Active 000436127 positive airway pressure) dependence Problem Dietary Z71.3 Active 659464807 surveillance and counseling Problem Hyperglycemia R73.9 Active 42848792 Problem Kidney problem N28.9 Active 693961474 Problem GODFREY (obstructive G47.33 Active 99377869 sleep apnea) Problem Raynaud''s I73.00 Active 438405125 disease without gangrene Problem Vaginal lump N94.9 Active 561040148 Problem Status post fall Z91.81 Active 912802134 Problem Hypotension, I95.9 Active 92022502 Improved. 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 Problem Fatigue, R53.83 Active 02035895 unspecified type Problem Dizziness R42 Active 491384689 Problem Slow transit K59.01 Active 66967139 constipation Problem Nausea R11.0 Active 376388258 ALLERGIES Allergen (clinical Drug/Non Drug Reaction Allergy Type Onset Date S tatus drug ingredient) Allergy documented on EMR nifedipine NIFEdipine([facility] causes leg Drug Allergy Active Code:[address]-89 swelling ) penicillin Unknown Drug Allergy Active ENCOUNTERS from 1975 to 2020-08-22 Encounter Location Date Provider Diagnosis [address] Jul[facility] [place] [address] IMMUNIZATIONS Vaccine Route Administration Date Status Flucelvax - single dose syringe IM Intramuscular Sep 27, 2019 Administered SOCIAL HISTORY Tobacco Use: Social History Observation Description Date Details (start date - stop date) Never Smoker Sex Assigned At : Social History Observation Description Sex Assigned At Unknown Alcohol Screen Question Answer Notes Did you have a drink containing alcohol in the past year? No Points 0 Interpretation Negative Tobacco Use/Smoking Question Answer Notes Are you a never smoker REASON FOR REFERRAL No Information VITAL SIGNS No information MEDICATIONS Medication SIG (Take, Route, Start Date End Date Status Frequency, Duration) Trazodone HCl 50 MG 2 tablets at bedtime as Active needed for sleep Orally Once a day Ultram 50 MG 1 tablet as needed Active Orally every 6 hrs Pravastatin Sodium 10 MG 1 tablet in evening Active Orally Once a day for 90 Premarin 0.625 MG/GM USE 0.5 GRAMS AT Act jamaal BEDTIME FOR 2 WEEKS, THEN USE 2 TIMES A WEEK THERE AFTER Vaginal for 30 Zofran 8 MG 1 tablet Orally every Nov, Active 8 hours for N/V for 30 day(s) Mirtazapine 7.5 MG TAKE 1 TABLET BY MOUTH Active EVERYDAY AT BEDTIME Oral for 30 Losartan Potassium 50 MG as directed Orally 1 Active tablet once a day and take a 2nd dose in 12h prn BP > or = 150/90 Cardura 4 MG 1/2 tablet Orally Twice March, Acti ve daily Coreg 25 MG 1 tablet Orally Twice a Acti ve day as needed for BP > or = 150/90 Methotrexate 2.5 MG TAKE 9 TABLETS BY MOUTH Active EVERY 7 DAYS Oral for 28 Saxenda 18 MG/3ML as directed Nov, Active Subcutaneous 1.8 mg once daily for 90 days Pen [place] 32G X 5 MM as directed Activ e subcutaneous as directed for use with Saxenda Pen once daily for 90 days Carvedilol 25 mg 1 tablet with food May, Activ e Orally Once a day Hydroxychloroquine Sulfate TAKE 1 TABLET BY MOUTH Active 200 MG TWICE A DAY Oral for 30 Orencia 125 MG/ML 1 ml Subcutaneous for A ctive 30 day(s) Sertraline HCl 100 MG TAKE 1 TABLET BY MOUTH Active EVERY DAY Oral for 30 Folic Acid 1 MG TAKE 2 TABLETS BY MOUTH A ctive EVERY DAY Oral for 30 Estradiol 0.5 MG TAKE 1 TABLET BY MOUTH A ctive EVERY DAY Oral for 90 PROCEDURES No Information RESULTS No Results REASON FOR VISIT elevated BP MEDICAL (GENERAL) HISTORY Type Description Date Medical History Depression with anxiety Medical History Hypertension Medical History Hyperlipidemia Medical History Kidney problem Medical History Scleroderma Medical History Raynaud's syndrome Medical History Dietary counseling and surveillance Medical History Obesity Medical History Eyelid abnormality Medical History Fibromyalgia Medical History Chronic pain syndrome Medical History BMI 35.0-35.9,adult Surgical History 1989,1992,1995 Surgical History Hysterectomy 2010 Surgical History Bx. of left lung and removal of fluid ar ound left 11/08/[address] Delio Richter (thoracic sx.) Goals Section No Information Health Concerns No Information MEDICAL EQUIPMENT No Information MENTAL STATUS No Information FUNCTIONAL STATUS No Information ASSESSMENTS No Information PLAN OF TREATMENT Medication Medication Name Sig Start Date Stop Date Losartan Potassium 50 MG as directed Orally 1 tablet once a day and take a 2nd dose in 12h prn BP > or = 150/90 Coreg 25 MG 1 tablet Orally Twice a day as needed for BP > or = 150/90 Saxenda 18 MG/3ML as directed Subcutaneous 1.8 mg once 25 Nov, 2020 daily for 90 days Pen [place] 32G X 5 MM as directed subcutaneous as directed for use with Saxenda Pen once daily for 90 days Pravastatin Sodium 10 MG 1 tablet in evening Orally Once a day for 90 Insurance Providers Payer Name Payer Payer Insured Name Patient Coverage Covera End Address Phone Relationship to Start Date Brijesh e Insured [employer] [phone] Naresh Clayton 2019 and Charles [id number] [address] [place] [phone]
--- OUTSIDE RECORDS SUMMARY | 2020-09-05 21:19 | XMS REPORT | Continuity of Care Document ---
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[facility] bilateral bilateral 2-13 [facility] - pleural pleural 00:00: Medical effusions effusions 00 Cent er Shortness Shortness Disease Active 2017-[address] [facility] of breath of breath 2-13 [facility] - 00:00: Medical 00 Center Mydriasis Mydriasis Disease Active 2015-11 [facility]y [facility]on 2-12 [facility] 00:00: st 00 High risk High risk Disease Active 2015-11 Janey ston medication medication 2-12 Dc thodi use use 00:00: st 00 Allergies, Adverse Reactions, Alerts Allergy Allergy Status Severity Reaction(s) Onset Inactive Treating Comm ents Source Name Type Date Date Clinician Zolpidem Propensi Active Other (See [facility] to Comments) 3-30 [facility] - adverse 00:00: Medical reaction 00 Center s Amlodipi Propensi Active Swelling [facility] ty to 2-07 [facility] - adverse 00:00: Medical reaction 00 Center s Amitript Propensi Active 2015-11 [place] to 01-10 [facility] adverse 00:00: st reaction 00 s to drug Nifedipi Propensi Active 2015-11 [place] to 2 [facility] adverse 00:00: st reaction 00 s to drug Penicill Propensi Active 2015-11 [place] ty to 01-10 [facility] adverse 00:00: st reaction 00 s to drug Amitript Propensi Active Palpitations 2015-[address] yline ty to 01-10 [facility] - adverse 00:00: Medical reaction 00 Center s Nifedipi Propensi Active Other (See [facility] to Comments), 3-03 [facility] - adverse Swelling 00:00: Medical reaction 00 Center s Penicill Propensi Active Other (See Toddler; [facility] to Comments), 03-24 breathing Fer es - adverse Shortness Of 00:00: issues Med ical reaction Breath 00 Center s penicill Adverse Active Info Not [facility] Reaction Available [facility] NIFEdipi Adverse Active causes leg [facility] ne Reaction swelling [facility] Family History Family Member Diagnosis Comments Start Date Stop Date Source Natural brother No Known Problems [place] Natural father Diabetes [facility] thodist Natural father Hyperlipidemia [place] Natural father Hypertension [place] [facility] Maternal grandfather Cancer [place] Natural mother Hyperlipidemia [place] Paternal grandmother Diabetes [place] Paternal grandmother Glaucoma [place] Paternal grandmother Hypertension [place] Natural sister No Known Problems Janey de [place] Jainism Social History Social Habit Start Date Stop Date Quantity Comments Source History SDOH [facility] - Alcohol Std Drinks Medica l Center History SDOH [facility] - Alcohol Binge Medical Nnamdi ter Sex Assigned At [facility] History SDOH 2018-11-07 2018-11-07 1 [facility] - Alcohol Frequency 00:00:00 00:00:00 [facility] Alcohol intake 2016-11-09 2016-11-09 Current [facility] thodist 00:00:00 00:00:00 non-drinker of alcohol (finding) Smoking Status Start Date Stop Date Source Never smoker [facility] edical Center Medications Ordered Filled Start Stop Current Ordering Indication Dosage Frequency Signature Comments Components Source Medication Medication Date Date Medication? Clinician (SIG) Name Name gabapentin 2017-11 Yes 300mg [id number] Take [address] [facility] [address] (NEURONTIN) 2-14 [id number] capsule [facility] - 300 MG 00:00: 3D (300 mg Medical capsule 00 total) by Center mouth 3 (three) times daily. traMADol 2017-11 Yes 50mg Take 1-2 [facility] (ULTRAM) 50 2-14 tablets [facility] - mg tablet 00:00: (50-100 mg Me dical 00 total) by Center mouth every 6 (six) hours as needed. Max Daily Amount: 400 mg naltrexone- 2017-11 Yes Q.5D Take by [facility] bupropion 2-10 mouth 2 [facility] - (CONTRAVE) 15:30: (two) Medica l 8-90 mg 41 times [place] TbER daily. 2017-11 Yes 1{tbl} QD Take 1 [facility] vitamin 2-10 tablet by [facility] - w/calcium-i 15:30: mouth Medic al bob-folate 41 daily. [place] ( PLUS) 27 mg iron- 1 mg Tab cyanocobala 2017-11 Yes 1{tbl} QD Take [address] min, 2-10 tablet by [facility] - vitamin 15:30: mouth Medical B-12, 41 daily. [place] (VITAMIN B-12 ORAL) BIOTIN ORAL 2017-11 Yes 1{tbl} QD Take [address] 2-10 tablet by [facility] - 15:30: mouth Medical 41 daily. [place] FOLIC ACID 2017-11 Yes 2mg QD Take [address] ORAL 2-10 by mouth [facility] - 15:30: daily. Medical 40 [place] methotrexat 2017-11 Yes Q7D Take by [facility] e 2.5 MG 2-10 mouth once [facility] - tablet 15:30: a week. 8 Medica l 40 Tablets [place] hydroxychlo 2017-11 Yes Q.5D Take by [facility] roquine 2-10 mouth 2 [facility] - (PLAQUENIL) 15:30: (two) Medic al 200 mg 40 times Center tablet daily. losartan 2017-11 Yes 50mg QD Take [address] (COZAAR) 50 2-10 by mouth [facility] - MG tablet 15:30: daily. Medica l 40 Center pravastatin 2017-11 Yes 10mg QD Take [address] [facility] (PRAVACHOL) 2-10 by mouth Luke s - 10 MG 15:30: daily. Medical tablet 40 Center doxazosin 2017-11 Yes 4mg Q.5D Take [address] [facility] (CARDURA) 8 2-10 by mouth 2 Yarelis kes - MG tablet 15:30: (two) Medical 40 times Center daily. abatacept 2017-11 Yes 1{dose} Q7D Inject [address] (ORENCIA 2-10 Dose [facility] - SUBQ) 15:30: subcutaneo Medica l 39 usly once Center a week. lamoTRIgine 2017-11 Yes 200mg QD Take [address] (LAMICTAL) 2-10 mg by [facility] - 200 MG 15:30: mouth Medical tablet 39 daily. [place] carvedilol 2017-11 Yes 25mg Take [address] (COREG) 25 2-10 by mouth 2 Fer es - MG tablet 15:30: (two) Medical 39 times Center daily with breakfast and dinner. traZODone 2017-11 Yes 50mg QD Take [address] (DESYREL) 2-10 by mouth [facility] - 50 MG 15:30: nightly. Medical tablet 39 Center hydroxychlo 2015-11 Yes [place] roquine 2-07 [facility] (PLAQUENIL) 00:00: st 200 mg 00 tablet ALPRAZolam 2015-11 Yes Jav[place] (XANAX) 1 2-02 [facility] MG tablet 00:00: st 00 SAVELLA 2015-11 Yes Javon 12.5 mg 2-01 [facility] (5)-25 00:00: st mg(8)-50 00 mg(42) tablets,dos e pack amLODIPine 2015-11 Yes [place]av[place] (NORVASC) 1-29 [facility] 10 mg 00:00: st tablet 00 promethazin 2015-11 Yes [place] e 1-29 [facility] (PHENERGAN) 00:00: st 12.5 MG 00 tablet esomeprazol 2015-11 Yes [place] e (NexIUM) 1-22 [facility] 40 MG 00:00: st capsule 00 doxazosin 2015-11 Yes Alej[place] (CARDURA) 4 1-22 [facility] MG tablet 00:00: st 00 predniSONE 2015-11 Yes Alejandro (DELTASONE) 1-19 [facility] 5 mg tablet 00:00: st 00 traMADol 2015-[address] [place] (ULTRAM) 50 0-28 [facility] mg tablet 00:00: st 00 carvedilol 2015-11 Yes 25mg Q.5D Take 25 mg [place] (COREG) 25 0-16 by mouth 2 Met hodi MG tablet 00:00: (two) st 00 times a day. pravastatin 2015-11 Yes 10mg QD Take 10 mg Alejandro (PRAVACHOL) 0-16 by mouth Meth vivian 10 MG 00:00: nightly. st tablet 00 Pravastatin Pravastatin Yes Ines [address] [facility] Sodium Sodium Mill[place] in evening [facility] ent Clinics Immunizations Ordered Filled Immunization Date Status Comments [facility] e Immunization Name Name Flucelvax - single Flucelvax - single 2019-09-[address] [facility] - dose syringe dose syringe 00:00:00 [facility] Procedures This patient has no known procedures. Plan of Care Planned Activity Planned Date Details Comments Source Future Scheduled 2020-07-[address] [facility] - Test 00:00:00 (#1) [code = [facility] Center INFLUENZA VACCINE (#1)] Future Scheduled 2020-06-29 INFLUENZA VACCINE [place] [facility] Test 00:00:00 [code = INFLUENZA VACCINE] Future Scheduled [address] [facility] - Test 00:00:00 (procedure) [code = [facility] 91249771] Future Scheduled 1995 Screening for Alejandro Me thodist Test 00:00:00 malignant neoplasm of cervix (procedure) [code = 350340176] Future Scheduled [address] [facility] Fer es - Test 00:00:00 malignant neoplasm Medical C enter of cervix (procedure) [code = 996157007] Encounters Start End Encounter Admission Attending Care Care Encounter Source Date/Time Date/Time Type Type Clinicians Facility Department ID 2020-09-04 2020-09-04 [facility] [id number] 2020-08-21 2020-08-21 [id number] 2020-08-02 2020-08-02 Office ManjinderRito [facility] [id number] 11:35:55 14:30:24 Visit [place] AMBULATOR [id number] Y [id number] 2020-06-08 2020-06-08 Laboratory Lab, [facility] [id number] 14:55:34 15:15:34 Only Fam Pob I Health [id number] [place] [id number] Professio [id number] nal 044 Office Building One 2020-04-04 2020-04-04 [facility] [id number] [address] 13:10:00 13:10:00 [facility] Medicine Outpati ent Clinics 2020-03-27 2020-03-27 [facility] [id number] 11:30:00 11:30:00 [facility] Medicine Outpati ent Clinics 2019-12-28 2019-12-28 [facility] [id number] 11:00:00 11:00:00 [facility] Medicine Medicine Outpati ent Clinics 2019-12-07 2019-12-07 [facility] [id number] 13:00:00 13:00:00 [facility] Medicine Outpati ent Clinics 2019-09-27 2019-09-27 [facility] [id number] 11:33:00 11:33:00 [facility] Medicine Outpati ent Clinics 2019-09-27 2019-09-27 [facility] [id number] 10:00:00 10:00:00 [facility] Medicine Outpati ent Clinics 2019-08-24 2019-08-24 [facility] [id number] [address] 16:01:00 16:01:00 [facility] Medicine Outpati ent Clinics 2019-08-01 2019-08-01 Office STEPHEN Evans [id number] 14:26:41 14:46:41 Visit [facility] AMBULATOR [id number] Y [id number] 2019-06-27 2019-06-27 [facility] [id number] 15:00:00 15:00:00 [facility] Medicine Outpati ent Clinics 2019-06-06 2019-06-06 [facility] [id number] 09:20:00 09:20:00 [facility] Medicine Outpati ent Clinics 2019-03-17 2019-03-17 [facility] [id number] [address] 16:00:00 16:00:00 [facility] Medicine Outpati ent Clinics 2019-01-18 2019-01-18 [facility] [id number] 15[facility]55:00 15:55:00 [facility] Medicine Outpati ent Clinics 2018-12-16 2018-12-16 [facility] [id number] 16:15:00 16:15:00 [facility] Medicine Outpati ent Clinics 2018-09-07 2018-09-07 [facility] [id number] [address] 20:38:00 20:38:00 [facility] Medicine Outpati ent Clinics 2018-09-06 2018-09-06 [facility] [id number] 11:00:00 11:00:00 [facility] Medicine Outpati ent Clinics 2018-06-16 2018-06-16 [facility] [id number] 08:21:00 08:21:[address] [facility] Medicine Outpati ent Clinics 2018-06-08 2018-06-08 [facility] [id number] 10:32:00 10:32:[address] [facility] Medicine Outpati ent Clinics 2018-06-06 2018-06-06 [facility] [id number] 11:45:00 11:45:[address] [facility] Medicine Outpati ent Clinics 2018-06-03 2018-06-03 [facility] [id number] 09:29:00 09:29:[address] [facility] Medicine Outpati ent Clinics 2018-05-13 2018-05-13 [facility] [id number] 13:00:00 13:00:[address] [facility] Medicine Outpati ent Clinics 2018-04-05 2018-04-05 [facility] [id number] 11:00:00 11:00:00 [facility] Medicine Outpati ent Clinics 2018-03-31 2018-03-31 [facility] [id number] 15:36:00 15:36:[address] [facility] Medicine Outpati ent Clinics 2018-03-29 2018-03-29 [facility] [id number] 16:43:00 16:43:[address] [facility] Medicine Outpati ent Clinics Results Test Description Test Time Test Comments Results Result Comments Source AFB CULTURE + SMEAR 2018-12-28 12:38:00 Test Item Value Reference Range Interpretation Comme nts CULTURE (BEAKER) (test code = 1095) No acid-fast bacilli isolated i n 42 days AFB SMEAR (BEAKER) (test code = 994) No acid fast bacilli seen AFB CULTURE + [id number] 12:38:00 Test Item Value Reference Range Interpretation Comments CULTURE (BEAKER) (test No acid-fast bacilli code = 1095) isolated in 42 days AFB SMEAR (BEAKER) No acid fast bacilli (test code = 994) seen FUNGUS CULTURE + [id number] 15:25:00 Test Item Value Reference Range Interpretation Comments CULTURE (BEAKER) (test No fungus isolated in code = 1095) 28 days FUNGUS SMEAR (BEAKER) No fungi seen (test code = 1406) FUNGUS CULTURE + [id number] 15:25:00 Test Item Value Reference Range Interpretation Comments CULTURE (BEAKER) (test No fungus isolated in code = 1095) 28 days FUNGUS SMEAR (BEAKER) No fungi seen (test code = 1406) SURGICALLY OBTAINED CULTURE + GRAM [id number] 08:22:00 Test Item Value Reference Interpretation Comments Range CULTURE (BEAKER) COAGULASE NEGATIVE A From Broth Only (test code = 1095) STAPHYLOCOCCUS Coagula se negative Staphylococcus Clindamycin (test S code = 10) Erythromycin (test R code = 4) Linezolid (test code S = 40) Nitrofurantoin (test S code = 23) Oxacillin (test code R = 14) Rifampin (test code S = 43) Tetracycline (test S code = 2) Trimethoprim + S Sulfamethoxazole (test code = 47) Vancomycin (test S code = 13) CULTURE (BEAKER) COAGULASE NEGATIVE A From Broth Only (test code = 1095) STAPHYLOCOCCUS Coagula se negative Staphylococcuso f a second type Clindamycin (test S code = 10) Erythromycin (test R code = 4) Nitrofurantoin (test S code = 23) Oxacillin (test code S = 14) Rifampin (test code S = 43) Tetracycline (test S code = 2) Trimethoprim + R Sulfamethoxazole (test code = 47) Vancomycin (test S code = 13) GRAM STAIN RESULT <1+ White blood (BEAKER) (test code cells seen = 1123) GRAM STAIN RESULT <1+ gram variable (BEAKER) (test code coccobacilli = 132662) TISSUE [id number] 20:10:00Surgical Pathology Report Case: [id number] Authorizing Provider: Al Bauer MD Collected: 11/10/2018 0859 Ordering Location: [facility] Received: 11/10/2018 0953 PERIOPERATIVE SERVICES Pathologist: Raymond Gagnon MD Specimens: A) - Lung, Left Upper Lobe, LEFT UPPER LOBE WEDGE B) -Lung, Left Lower Lobe, LUNG LEFT LOWER LOBE WEDGE A. LUNG, LEFT UPPER L OBE, WEDGE RESECTION: - LUNG PARENCHYMA WITH MILD EMPHYSEMATOUS CHANGE (SEE MICROSCOPIC DESCRIPTIONAND COMMENT)B. LUNG, LEFT LOWER LOBE, WEDGE RESECTION: - LUNG PARENCHYMA WITH MILD EMPHYSEMATOUS CHANGE (SEE MICROSCOPIC DESCRIPTION AND COMMENT) Signing Pathologist Direct Phone Line: The lung parenchyma shows mild emphysematous change and no other significant diagnostic abnormality. There is no evidence of interstitial lung disease (or) changes suggestive of autoimmune lung disease. Clinical and rad iologic correlation is recommended to determine if the targeted areas are appropriately sampled.[id number] of breathA. Left upper lobe lung wedge; B. Left lower lobe lung wedgeSpecimen A: Received fresh labeled "lung, left upper lobe" is a 3.0 x 2.0 x 0.6 cm surgically stapled wedge of pulmonary parenchyma. The pleural surface is purple-guerra to paulson-white and smooth. The specimen is [...] vasculitis, granulomas, organizing pneumonia, neoplasm are evident.ANAEROBIC CULTURE 2018-11-15 18:07:00 Test Item Value Reference Range Interpretation Comments CULTURE (BEAKER) (test No anaerobes isolated code = 1095) ANAEROBIC [id number] 18:07:00 Test Item Value Reference Range Interpretation Comments CULTURE (BEAKER) (test No anaerobes isolated code = 1095) SURGICALLY OBTAINED CULTURE + GRAM [id number] 11:55:00 Test Item Value Reference Range Interpretation Comments CULTURE (BEAKER) (test No growth code = 1095) GRAM STAIN RESULT No White blood cells (BEAKER) (test code = seen 1123) GRAM STAIN RESULT No organisms seen (BEAKER) (test code = 10884) RAD, CHEST, 1 VIEW, NON [id number] 11:44:00Reason for exam:->s/p chest tube removalShould this be performed at the bedside?->YesFINAL REPORT RAD, CHEST, 1 VIEW, NON DEPT INDICATION: s/p chest tube removal C OMPARISON: Seven hours prior FINDINGS: Portable frontal view of the chest. IMPRESSION: Support Lines: Left thoracostomy tube has been removed. Lungs and pleura: There is a tiny left apical pneumothorax. Lungs are otherwise clear.Heart and mediastinum: Stable, unremarkable mediastinal contours.Additi onal findings: None. Signed: JR Garcia Robert MDReport Verified Date/Time: 11/11/2018 11:44:17 Reading Location: [facility] Radiology Reading Room CBC W/PLT COUNT & AUTO [id number] 05:43:00 Test Item Value Reference Range Interpretation Comments WHITE BLOOD CELL COUNT (BEAKER) 5.5 K/ L 3.5-10.5 (test code = 775) RED BLOOD CELL COUNT (BEAKER) 3.44 M/ L 3.93-5.22 L (test code = 761) HEMOGLOBIN (BEAKER) (test code = 10.6 GM/DL 11.2-15.7 L 410) HEMATOCRIT (BEAKER) (test code = 33.7 % 34.1-44.9 L 411) MEAN CORPUSCULAR VOLUME (BEAKER) 98.0 fL 79.4-94.8 H (test code = 753) MEAN CORPUSCULAR HEMOGLOBIN 30.8 pg 25.6-32.2 (BEAKER) (test code = 751) MEAN CORPUSCULAR HEMOGLOBIN CONC 31.5 GM/DL 32.2-35.5 L (BEAKER) (test code = 752) RED CELL DISTRIBUTION WIDTH 12.9 % 11.7-14.4 (BEAKER) (test code = 412) PLATELET COUNT (BEAKER) (test 186 K/CU MM 150-450 code = 756) MEAN PLATELET VOLUME (BEAKER) 10.7 fL 9.4-12.3 (test code = 754) NUCLEATED RED BLOOD CELLS 0 /100 WBC 0-0 (BEAKER) (test code = 413) NEUTROPHILS RELATIVE PERCENT 88 % (BEAKER) (test code = 429) LYMPHOCYTES RELATIVE PERCENT 6 % (BEAKER) (test code = 430) MONOCYTES RELATIVE PERCENT 5 % (BEAKER) (test code = 431) EOSINOPHILS RELATIVE PERCENT 0 % (BEAKER) (test code = 432) BASOPHILS RELATIVE PERCENT 0 % (BEAKER) (test code = 437) NEUTROPHILS ABSOLUTE COUNT 4.82 K/ L 1.56-6.13 (BEAKER) (test code = 670) LYMPHOCYTES ABSOLUTE COUNT 0.35 K/ L 1.18-3.74 L (BEAKER) (test code = 414) MONOCYTES ABSOLUTE COUNT (BEAKER) 0.29 K/ L 0.24-0.36 (test code = 415) EOSINOPHILS ABSOLUTE COUNT 0.00 K/ L 0.04-0.36 L (BEAKER) (test code = 416) BASOPHILS ABSOLUTE COUNT (BEAKER) 0.01 K/ L 0.01-0.08 (test code = 417) IMMATURE GRANULOCYTES-RELATIVE 0 % 0-1 PERCENT (BEAKER) (test code = 2801) [id number] 05:26:00 Test Item Value Reference Range Interpretation Comments MAGNESIUM (BEAKER) (test code = 2.6 mg/dL 1.6-2.6 627) BASIC METABOLIC [id number] 05:26:00 Test Item Value Reference Range Interpretation Comments SODIUM (BEAKER) 140 meq/L 136-145 (test code = 381) POTASSIUM (BEAKER) 4.8 meq/L 3.5-5.1 (test code = 379) CHLORIDE (BEAKER) 109 meq/L 98-107 H (test code = 382) CO2 (BEAKER) (test 22 meq/L 22-29 code = 355) BLOOD UREA NITROGEN 19 mg/dL 7-21 (BEAKER) (test code = 354) CREATININE (BEAKER) 1.49 mg/dL 0.57-1.25 H (test code = 358) GLUCOSE RANDOM 105 mg/dL 70-105 (BEAKER) (test code = 652) CALCIUM (BEAKER) 9.9 mg/dL 8.4-10.2 (test code = 697) EGFR (BEAKER) (test 38 mL/min/1.73 ESTIMA JULIANNA GFR IS code = 1092) sq m NOT ACCURATE CREATININE CLEARANCE IN PREDICTING GLOMERULAR FILTRATION RATE . ESTIMATED GFR I S NOT APPLICABLE FOR DIALYSIS PATIEN TSMadyson RAD, CHEST, 1 VIEW, NON [id number] 04:31:00Reason for exam:->S/P left lung biopsy; please evaluate for pneumothoraxIs the patient ?-& gt;NoShould this be performed at the bedside?->YesFINAL REPORT Comparison exam: 11/10/2018 Interval development of mild right lower lobe atelectasis. Normal cardiomediastinal contours. Left chest tube, stable in position. Signed: Noah Reneeeport Verified Date/Time: 11/11/2018 04:31:41 Reading Location: [address] Reading Room PHOSPHORUS 2018-11-10 10:18:00 Test Item Value Reference Range Interpretation Comments PHOSPHORUS (BEAKER) (test code = 3.4 mg/dL 2.3-4.7 604) [id number] 10:18:00 Test Item Value Reference Range Interpretation Comments MAGNESIUM (BEAKER) (test code = 1.9 mg/dL 1.6-2.6 627) BASIC METABOLIC [id number] 10:18:00 Test Item Value Reference Range Interpretation Comments SODIUM (BEAKER) 143 meq/L 136-145 (test code = 381) POTASSIUM (BEAKER) 4.3 meq/L 3.5-5.1 (test code = 379) CHLORIDE (BEAKER) 112 meq/L 98-107 H (test code = 382) CO2 (BEAKER) (test 26 meq/L 22-29 code = 355) BLOOD UREA NITROGEN 20 mg/dL 7-21 (BEAKER) (test code = 354) CREATININE (BEAKER) 1.63 mg/dL 0.57-1.25 H (test code = 358) GLUCOSE RANDOM 121 mg/dL 70-105 H (BEAKER) (test code = 652) CALCIUM (BEAKER) 9.0 mg/dL 8.4-10.2 (test code = 697) EGFR (BEAKER) (test 34 mL/min/1.73 ESTIMA JULIANNA GFR IS code = 1092) sq m NOT ACCURATE CREATININE CLEARANCE IN PREDICTING GLOMERULAR FILTRATION RATE . ESTIMATED GFR I S NOT APPLICABLE FOR DIALYSIS PATIEN TS. RAD, CHEST, 1 VIEW, NON [id number] 10:16:00Reason for exam:->S/P left lung biopsy; evaluate for pneumothoraxIs the patient ?->NoShould this be performed at the bedside?->YesFINAL REPORT RAD, CHEST, 1 VIEW, NON DEPT INDICATION: S/P left lung biopsy; evaluate for pneumothorax COMPARISON: November 07, 2018 FINDINGS: Portable frontal view of the chest. IMPRESSION: Support Lines: Left thoracostomy tube terminates near the apex. Lungs and pleura: Clear lungs. No visible pneumothorax on either side.Heart and mediastinum: Stable, unremarkable contours.Additional findings: None. Signed: JR Garcia Robert MDReport Verified Date/Time: 11/10/2018 10:16:26 Reading Location: [facility] Radiology Reading Room CBC (HEMOGRAM ONLY)2018-11-10 09:58:00 Test Item Value Reference Range Interpretation Comments WHITE BLOOD CELL COUNT (BEAKER) 3.0 K/ L 3.5-10.5 L (test code = 775) RED BLOOD CELL COUNT (BEAKER) 3.13 M/ L 3.93-5.22 L (test code = 761) HEMOGLOBIN (BEAKER) (test code = 9.5 GM/DL 11.2-15.7 L 410) HEMATOCRIT (BEAKER) (test code = 30.0 % 34.1-44.9 L 411) MEAN CORPUSCULAR VOLUME (BEAKER) 95.8 fL 79.4-94.8 H (test code = 753) MEAN CORPUSCULAR HEMOGLOBIN 30.4 pg 25.6-32.2 (BEAKER) (test code = 751) MEAN CORPUSCULAR HEMOGLOBIN CONC 31.7 GM/DL 32.2-35.5 L (BEAKER) (test code = 752) RED CELL DISTRIBUTION WIDTH 13.3 % 11.7-14.4 (BEAKER) (test code = 412) PLATELET COUNT (BEAKER) (test 159 K/CU MM 150-450 code = 756) MEAN PLATELET VOLUME (BEAKER) 10.3 fL 9.4-12.3 (test code = 754) NUCLEATED RED BLOOD CELLS 0 /100 WBC 0-0 (BEAKER) (test code = 413) RAD, CHEST, 2 [id number] 16:23:00Reason for exam:->Shortness of breath FINAL REPORT PA and Lateral views of the chest dated 11/07/2018 Clinical information: Shortness of breath Comment: Heart is normal in size. Pulmonary vasculature is unremarkable. Lungs are clear. No pulmonary infiltrate or pleural effusion is present. Impression: No active ca rdiopulmonary disease. Signed: Grisel Ferraroeport Verified Date/Time: 11/07/2018 16:23:26 ReadingLocation: [address] Radiology Reading Room PREGNANCY SCREEN, [id number] 16:20:00 Test Item Value Reference Range Interpretation Comments TEST URINE (BEAKER) (test Negative code = 583) COMPREHENSIVE METABOLIC [id number] 16:11:00 Test Item Value Reference Range Interpretation Comments TOTAL PROTEIN 7.1 gm/dL 6.0-8.3 (BEAKER) (test code = 770) ALBUMIN (BEAKER) 4.1 g/dL 3.5-5.0 (test code = 1145) ALKALINE PHOSPHATASE 79 U/L 40-150 (BEAKER) (test code = 346) BILIRUBIN TOTAL 0.3 mg/dL 0.2-1.2 (BEAKER) (test code = 377) SODIUM (BEAKER) (test 145 meq/L 136-145 code = 381) POTASSIUM (BEAKER) 4.6 meq/L 3.5-5.1 (test code = 379) CHLORIDE (BEAKER) 110 meq/L 98-107 H (test code = 382) CO2 (BEAKER) (test 27 meq/L 22-29 code = 355) BLOOD UREA NITROGEN 21 mg/dL 7-21 (BEAKER) (test code = 354) CREATININE (BEAKER) 1.63 mg/dL 0.57-1.25 H (test code = 358) GLUCOSE RANDOM 101 mg/dL 70-105 (BEAKER) (test code = 652) CALCIUM (BEAKER) 10.1 mg/dL 8.4-10.2 (test code = 697) AST (SGOT) (BEAKER) 24 U/L 5-34 (test code = 353) ALT (SGPT) (BEAKER) 17 U/L 6-55 (test code = 347) EGFR (BEAKER) (test 34 mL/min/1.73 ESTIMA JULIANNA GFR IS code = 1092) sq m NOT ACCURATE CREATININE CLEARANCE IN PREDICTING GLOMERULAR FILTRATION RATE . ESTIMATED GFR I S NOT APPLICABLE FOR DIALYSIS PATIEN TS. [id number] 16:06:00 Test Item Value Reference Range Interpretation Comments PROTIME (BEAKER) (test code = 13.5 seconds 11.7-14.7 759) INR (BEAKER) (test code = 370) 1.0 <=5.9 PARTIAL THROMBOPLASTIN TIME 30.3 seconds 22.5-36.0 (BEAKER) (test code = 760) RECOMMENDED COUMADIN/WARFARIN INR THERAPY RANGESSTANDARD DOSE: 2.0 - 3.0 Includes: PROPHYLAXIS forvenous thrombosis, systemic embolization; TREATMENT for venous thrombosis and/or pulmonary embolus.HIGH RISK: Target INR is 2.5-3.5 for patients with mechanical heart valves.CBC W/PLT COUNT & AUTO DIFFERENTIAL 2018-11-07 15:55:00 Test Item Value Reference Range Interpretation Comments WHITE BLOOD CELL COUNT (BEAKER) 3.5 K/ L 3.5-10.5 (test code = 775) RED BLOOD CELL COUNT (BEAKER) 3.40 M/ L 3.93-5.22 L (test code = 761) HEMOGLOBIN (BEAKER) (test code = 10.6 GM/DL 11.2-15.7 L 410) HEMATOCRIT (BEAKER) (test code = 32.6 % 34.1-44.9 L 411) MEAN CORPUSCULAR VOLUME (BEAKER) 95.9 fL 79.4-94.8 H (test code = 753) MEAN CORPUSCULAR HEMOGLOBIN 31.2 pg 25.6-32.2 (BEAKER) (test code = 751) MEAN CORPUSCULAR HEMOGLOBIN CONC 32.5 GM/DL 32.2-35.5 (BEAKER) (test code = 752) RED CELL DISTRIBUTION WIDTH 13.2 % 11.7-14.4 (BEAKER) (test code = 412) PLATELET COUNT (BEAKER) (test 189 K/CU MM 150-450 code = 756) MEAN PLATELET VOLUME (BEAKER) 10.8 fL 9.4-12.3 (test code = 754) NUCLEATED RED BLOOD CELLS 0 /100 WBC 0-0 (BEAKER) (test code = 413) NEUTROPHILS RELATIVE PERCENT 50 % (BEAKER) (test code = 429) LYMPHOCYTES RELATIVE PERCENT 36 % (BEAKER) (test code = 430) MONOCYTES RELATIVE PERCENT 9 % (BEAKER) (test code = 431) EOSINOPHILS RELATIVE PERCENT 3 % (BEAKER) (test code = 432) BASOPHILS RELATIVE PERCENT 1 % (BEAKER) (test code = 437) NEUTROPHILS ABSOLUTE COUNT 1.77 K/ L 1.56-6.13 (BEAKER) (test code = 670) LYMPHOCYTES ABSOLUTE COUNT 1.27 K/ L 1.18-3.74 (BEAKER) (test code = 414) MONOCYTES ABSOLUTE COUNT (BEAKER) 0.33 K/ L 0.24-0.36 (test code = 415) EOSINOPHILS ABSOLUTE COUNT 0.12 K/ L 0.04-0.36 (BEAKER) (test code = 416) BASOPHILS ABSOLUTE COUNT (BEAKER) 0.03 K/ L 0.01-0.08 (test code = 417) IMMATURE GRANULOCYTES-RELATIVE 0 % 0-1 PERCENT (BEAKER) (test code = 4111)
--- OUTSIDE RECORDS SUMMARY | 2020-09-05 21:19 | XMS REPORT | Summary of Care ---
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 [address] [place] [id number] Suspected Covid-19 Medicine - [facility], Adc Fam Pob I Virus Infection [address] [place] [address] (Primary D x) [place] [address] Allergies Active Allergy Reactions Severity Noted Date Comments Penicillins Unknown - See comments 03/24/2007 documented as of this encounter (statuses as of 06/08/2020) Medications Medication Sig Dispensed Refills Start Date End Date Status HYDRALAZINE 25 MG ORAL TAB One tab BID 0 Active INDERAL 60 MG ORAL TAB One tab BID 0 Active documented as of this encounter (statuses as of 06/08/2020) Active Problems Problem Noted Date Polycystic kidney 03/24/2007 Overview: ICD10 Diagnosis 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 COVID-19 Exposure Response Date Recorded In the last month, have you been in contact with Yes 06/08/2020 9:57 AM CDT someone who was confirmed or suspected to have Coronavirus / COVID-19? documented as of this encounter Last Filed Vital Signs Not on filedocumented in this encounter Plan of Treatment Name Type Priority Associated Diagnoses Order S anum COVID-19 (PCR MOLECULAR LAB Routine Suspected Covid-1 9 Virus Expected: 06/08/2020, TESTING) Infection Expires: 2020 Health Maintenance Due Date Last Done Comments DTaP,Tdap,and Td Vaccines 1985 (1 - Tdap) Depression Screening 1986 PAP SMEAR 11/11/2010 11/11/2007, 04/13/2005, 12/29/2004, Additional history exists Breast Cancer Screening 2014 (MAMMOGRAM) INFLUENZA VACCINE (#1) 2020 PNEUMOCOCCAL 0-64 YEARS Aged Out No longe r eligible COMBINED SERIES based on patient 's age to complete this topic documented as of this encounter Results Not on filedocumented in this encounter Visit Diagnoses Diagnosis Suspected Covid-19 Virus Infection - Vero kofi documented in this encounter Additional Health Concerns Infection Onset Date Last Indicated Resolved Time COVID-19 Rule Out 06/08/2020 06/08/2020 documented as of this encounter Insurance Payer Benefit Plan Subscriber ID Effective Dates Phone Address Type / Group [facility] [id number] 2018-[place] [phone] [address] [id number] [place] [address] [phone] [id number] (Work) documented as of this encounter
--- OUTSIDE RECORDS SUMMARY | 2020-09-05 21:19 | XMS REPORT | Summary of Care ---
:1975 Author Organization [facility] [place] [address] Care Team Providers Name Role Phone Roseline Angel MD Primary Care Provider Inc, Plus Supplies Unavailable MD Renata Unavailable Reason for Visit Reason Comments Disease Management Encounter Details Date Type Department Care Team Description 08/02/2020 Office Visit [facility] [place] [facility] Management Medicine Rheumatolog y [address] [place] [address] [address], [address] [place] [address] [phone] [place], [place] [address] [phone] Allergies Active Allergy Reactions Severity Noted Date Comments Ambien Hallucinations High 02/25/2018 Amitriptyline Palpitations High 11/09/2016 Amlodipine Swelling High 01/05/2017 Nifedipine Swelling High 01/29/2015 Penicillins RESP High 06/02/2011 Toddler; breath ing issues documented as of this encounter (statuses as of 08/02/2020) Medications Medication Sig Dispensed Refills Start End Date Status Date pravastatin (PRAVACHOL) Take 1 Tab by mouth 90 Tab 5 Active 10 MG tablet daily. 7 lamotrigine (LAMICTAL) Take 200 mg by 0 Active 200 MG tablet mouth daily. 8 trazodone (DESYREL) 50 Take 50 mg by mouth 0 Active MG tablet nightly as needed for Sleep. losartan (COZAAR) 25 MG Take 25 mg by mouth 0 Active tablet daily. Liraglutide -Weight Inject 3 mL into 0 Active Management (SAXENDA SC) the skin. Lurasidone HCl (LATUDA) Take by mouth. 0 Active 40 MG TABS promethazine Take 1 Tab by mouth 30 Tab 2 Active (PHENERGAN) 12.5 MG every 8 hours as 9 tablet needed for Nausea. tramadol (ULTRAM) 50 MG Take 1 Tab by mouth 60 Tab 1 Active tablet two times daily. 9 Tamsulosin HCl 0.4 MG TAKE 1 CAPSULE BY 30 Cap 11 Active CAPS MOUTH EVERY DAY 0 ORENCIA 125 MG/ML SOSY INJECT ONE SYRINGE 12 Syringe 3 02 Active SUBCUTANEOUSLY 0 EVERY 7 DAYS. cyclobenzaprine Take 1 Tab by mouth 90 Tab 1 Active (FLEXERIL) 5 MG nightly as needed 0 tabletIndications: for Pain (This may Inflammatory make you sleepy. polyarthritis (HCCode) Use with caution.). methylPREDNISolone Take 1 Tab by mouth 21 Tab 0 Active (MEDROL DOSEPACK) 4 MG See Admin 0 tabletIndications: Instructions. Inflammatory polyarthritis (HCCode) hydroxychloroquine Take 1 Tab by mouth 180 Tab 1 Active (PLAQUINIL) 200 MG two times daily. 0 tabletIndications: Undifferentiated connective tissue disease (HCCode) folic acid (FOLVITE) 1 2/day 60 Tab 2 Active MG tabletIndications: 0 Inflammatory polyarthritis (HCCode) carvedilol (COREG) TAKE 1 TABLET BY 180 Tab 2 Active 3.125 MG MOUTH TWICE A DAY 0 tabletIndications: Polycystic kidney disease methotrexate TAKE 9 TABLETS BY 108 Tab 0 Active (RHEUMATREX) 2.5 MG MOUTH ONCE A WEEK 0 tabletIndications: Inflammatory polyarthritis (HCCode) Hospital, Clinic, or Other Ordered Dose Route Frequency Start Date End Date Status Facility Administered Medication methylPREDNISolone acetate IX ONCE 08/02/2020 Ended (DEPO-MEDROL) 80 MG/ML 24 mg, lidocaine 1% (10 mg/mL) 0.6 mLIndications: Synovitis of finger documented as of this encounter (statuses as of 08/02/2020) Active Problems Patient Care Coordination Note Enbrel approved from 02/12/[address] Ines Angel [address] [facility] [address] [place] [address] Problem Noted Date Trochanteric bursitis, left hip 03/22/2018 Internal impingement of left shoulder 09/28/2017 Acneiform rash 04/29/2017 Impingement syndrome of right shoulder 04/29/2017 Seronegative rheumatoid arthritis (HCCode) 01/05/2017 Therapeutic drug monitoring 01/05/2017 Undifferentiated connective tissue disease (HCCode) Dyspnea 10/01/2016 GERD (gastroesophageal reflux disease) 07/27/2016 Proximal muscle weakness 07/21/2016 Raynaud phenomenon 07/21/2016 Inflammatory polyarthritis (HCCode) 07/21/2016 Serologic abnormality 07/21/2016 Muscle ache 03/07/2013 Onychomycosis 03/07/2013 Polycystic kidney disease 06/02/2011 Hypertension 06/02/2011 Chronic pain 06/02/2011 Anemia 06/02/2011 Dysuria 06/02/2011 documented as of this encounter (statuses as of 08/02/2020) Immunizations Name Administration Dates Next Due Influenza Quad-PF 09/28/2017 documented as of this encounter Social History Tobacco Use Types Packs/Day Years Used Date Never Smoker Smokeless Tobacco: Never Used Alcohol Use Drinks/Week oz/Week Comments No Sex Assigned at Date Recorded Female 12/27/2019 9:45 PM [facility] COVID-19 Exposure Response Date Recorded In the last month, have you been in contact with No / Unsure 08/02/2020 2:44 PM CDT someone who was confirmed or suspected to have Coronavirus / COVID-19? documented as of this encounter Last Filed Vital Signs Vital Sign Reading Time Taken Comments Blood Pressure 136/97 08/02/2020 11:41 AM CDT Pulse 106 08/02/2020 11:41 AM CDT Temperature - - Respiratory Rate - - Oxygen Saturation 98% 08/02/2020 11:41 AM CDT Inhaled Oxygen Concentration - - Weight 73.4 kg (161 lb 12.8 oz) 08/02/2020 11:41 AM CDT Height 167.6 cm (5' 6") 08/02/2020 11:41 AM CDT Body Mass Index 26.12 08/02/2020 11:41 AM CDT documented in this encounter Progress Notes Jose Dunbar MD - 08/02/2020 12:00 PM CDT Ms. Clayton is being seen at the [facility] ultrasound [facility] for evaluation of hand pain. She is primarily followed here at [facility] by Dr. Connors for UCTD/SCL70 with predominate arthritis. She is currently treated with Orencia, MTX, and Plaquenil. She was referred to musculoskeletalultrasound clinic for bilateral 1st and 5th MCP pain. She reported a steroid taper did not help. Current Outpatient Medications Medication Sig Dispense Refill carvedilol (COREG) 3.125 MG tablet TAKE 1 TABLET BY MOUTH TWICE A DAY 180 Tab 2 cyclobenzaprine (FLEXERIL) 5 MG tablet Take 1 Tab by mouth nightly as needed for Pain (This may make you sleepy. Use with caution.). 90 Tab 1 folic acid (FOLVITE) 1 MG tablet 2/day 60 Tab 2 hydroxychloroquine (PLAQUINIL) 200 MG tablet Take 1 Tab by mouth two times daily. 180 Tab 1 lamotrigine (LAMICTAL) 200 MG tablet Take 200 mg by mouth daily. Liraglutide -Weight Management (SAXENDA SC) Inject 3 mL into the skin. losartan (COZAAR) 25 MG tablet Take 25 mg by mouth daily. Lurasidone HCl (LATUDA) 40 MG TABS Take by mouth. methotrexate (RHEUMATREX) 2.5 MG tablet TAKE 9 TABLETS BY MOUTH ONCE A WEEK 108 Tab 0 methylPREDNISolone (MEDROL DOSEPACK) 4 MG tablet Take 1 Tab by mouth See Admin Instructions. 21 Tab 0 ORENCIA 125 MG/ML SOSY INJECT ONE SYRINGE SUBCUTANEOUSLY EVERY 7 DAYS. 12 Syringe 3 pravastatin (PRAVACHOL) 10 MG tablet Take 1 Tab by mouth daily. 90 Tab 5 promethazine (PHENERGAN) 12.5 MG tablet Take 1 Tab by mouth every 8 hours as needed for Nausea. 30 Tab 2 Tamsulosin HCl 0.4 MG CAPS TAKE 1 CAPSULE BY MOUTH EVERY DAY 30 Cap 11 tramadol (ULTRAM) 50 MG tablet Take 1 Tab by mouth two times daily. 60 Tab 1 trazodone (DESYREL) 50 MG tablet Take 50 mg by mouth nightly as needed for Sleep. No current facility-administered medications for this visit. Allergies Allergen Reactions Ambien Hallucinations Amitriptyline Palpitations Amlodipine Swelling Nifedipine Swelling Penicillins RESP Toddler; breathing issues Physical Examination: Ms. Clayton was not in acute distress. BP (!) 136/97 (BP Location: left arm, Patient Position: Sitting, Cuff Size: regular) | Pulse 106 | Ht 5' 6" (1.676 m) | Wt 161 lb 12.8 oz (73.4 kg) | SpO2 98% | BMI 26.12 kg/m A focused musculoskeletal exam revealed tenderness to bilateral 1st and 5th MCPs with right > left Assessment and Plan: Alethea Clayton is a 45 y.o. female with a history of UCTD/SCL70 with predominate arthritis on MTX, Orenica, and Plaquenil. US exam with synovial hypertrophy in her bilateral 1st and 5th MCPs with the more significant swelling noted to her right hand. This correlated well to her symptoms of pain. I suspect she did not have active doppler enhancement due to use of IS already. Since her pain did not respond to oral steroids we did targeted CSI to her right 1st and 5th MCPs. Dr. Connors will discuss with her any changes needed to her IS. Follow up PRN Procedures: 1. Ultrasound of Right and left MCPs Indication: pain Using a Woo With Styleiq e with 12 Mhz probe, standard views of the right 1st-5th MCP and left 1st and 5th MCP were obtained. This revealed a anechoic/hypoechoic density within the bilateral 1st and 5th MCP joint spaces with the worse on the right. There was mild doppler signal in the right 1st MCP synovial hypertrophy. The tendons were normal. Bony contours were regular without erosions seen. There wereno soft tissue masses noted. Impression: bilateral R>L 1st and 5th synovial hypertrophy 2. Right 1st and 5th MCP steroid injection. Indication: synovial hypertrophy The patient was advised about the possible risks of the procedure including pain, bleeding, infection and lack of benefit. After obtaining informed verbal and written consent, the area was prepped in a sterile fashion with chlorprep scrub x1. Ethyl chloride spray was used for anesthesia. A 25--gaugeneedle was inserted into the 1st and 5th right MCP joint space. 12 mg of depo-medrol mixed with 1% 0.3 cc lidocaine was injected into each of the 1st and 5th right MCP joint. The area was bandaged following the procedure and no acute complications were noted. The patient was advised to ice the area overnight and avoid strenuous activity for up to 72 hours. She will be contacting us should there beany fevers, increased pain or swelling suggestive of an infection. Estimated blood loss: 0cc Disposition: Home RIGHT 1st MCP 2nd MCP 3rd MCP 4th MCP 5th MCP LEFT 1st MCP 5th MCP documented in this encounter Plan of Treatment Date Type Specialty Care Team Description 08/06/2020 Telemedicine Rheumatology Marilny Connors MD [address] [place], [place] [address] [phone] 10/29/2020 Office Visit Rheumatology Marilyn Connors MD [address] [place], [place] [address] [phone] Health Maintenance Due Date Last Done Comments COLON CANCER SCREENIN1974 COLONOSCOPY TETANUS SHOT (ADULT) 1989 BMI FOLLOW UP PLAN 1992 HIV SCREENING 1992 CERVICAL CANCER SCREENING 3 YEAR 1995 FOLLOW UP MAMMOGRAM ANNUAL 2017 2016, 03/29/2015 FLU VACCINE > 6 MONTHS 06/29/2020 09/29/2019, 09/13/2018, 09/28/2017, Additional history exists ZOSTER VACCINE (1 of 2) 2024 documented as of this encounter Results Not on filedocumented in this encounter Visit Diagnoses Diagnosis Synovitis of finger - Primary Other tenosynovitis of hand and wrist Finger pain, right Pain in limb documented in this encounter Administered Medications Medication Order MAR Action Action Date Dose Rate Site methylPREDNISolone acetate Given by 08/02/2020 4:39 Right Index (DEPO-MEDROL) 80 MG/ML 24 mg, PM CDT Finger lidocaine 1% (10 mg/mL) 0.6 mL Intra-articular, ONCE, 1 dose, 08/02/20 at 1230, 1st and 5th right finger (2 injections), documented in this encounter Insurance Payer Benefit Plan / Subscriber ID Effective Dates Phone Addre ss Type Group BLUE CROSS PPO/EPO - BCBS [id number] 2018-Present [address] [place] [address] documented as of this encounter
== END 2020-09-04 16:09 | disposition home or self-care (01) ==
LOC: ER 13:56
DX: I12.9 Hypertensive chronic kidney disease with stage 1 through stage 4 chronic kidney disease, or unspecified chronic kidney disease (principal); N18.9 Chronic kidney disease, unspecified; I13.10 Hypertensive heart and chronic kidney disease without heart failure, with stage 1 through stage 4 chronic kidney disease, or unspecified chronic kidney disease; F32.9 Major depressive disorder, single episode, unspecified; Z88.0 Allergy status to penicillin; Z88.8 Allergy status to other drugs, medicaments and biological substances
CPT/HCPCS: 96361; 93005; 85025; 80048; 36415; 83735; 85610; 80076; 81003; 84484; 83880; 70450; 71045; 96374; 99285; J7040